=== PATIENT | male | born 1985 | race Caucasian/White ===

== ENCOUNTER 2020-10-02 11:59 | Emergency (ER) | payer SELFPAY ==
--- NOTE | ~2020-10-02 | XR_ITS ---
XR ribs RT 2V w CXR 2V DATE: 10/02/2020 12:14 INDICATION: Fall. Right-sided rib pain. TECHNIQUE: PA and lateral chest. 3 views of the right ribs. COMPARISON: None FINDINGS: There is a minimally displaced fracture of the lateral aspect of the right sixth rib. Normal heart size. No hilar or mediastinal enlargement. The lungs are clear of infiltrate or consolid ation. No pleural effusion or pulmonary vascular congestion or pneumothorax. IMPRESSION: Minimally displaced lateral right sixth rib fracture Reviewed, dictated and finalized at location B.
[2020-10-02 12:05] VITALS: BP 153/94; PULSE 68; RESP 18; TEMP 36.8; O2SAT 98
--- NOTE | 2020-10-02 12:31 | ED.CHESTPAIN ---
HPI - Chest Pain General Chief Complaint: Chest Pain Stated Complaint: broken rib Time Seen by Provider: 10/02/20 12:03 Source: RN notes reviewed History of Present Illness HPI narrative: Patient presents to emergency department from home for right-sided chest pain. Patient states he fell down 2 stairs yesterday and struck the right side of his chest on the railing states has had pain in his right anterior lateral chest since that time pain is worse with deep inspiration and rotation of the torso he denies striking his head or loss conscious he denies any other injury states he is not take anything for the pain Related Data Allergies Allergy/AdvReac Type Severity Reaction Status Date / Time morphine AdvReac Unknown Verified 10/02/20 12:09 Review of Systems Review of Systems: Gen.: Denies fevers or chills Eyes: Denies eye pain or visual change ENT: Denies congestion Respiratory: Denies shortness of breath or cough CV: See HPI GI: Denies abdominal pain nausea, emesis or diarrhea Musculoskeletal: Denies back pain or muscle pain Neuro: Denies numbness, tingling, weakness or focal weakness Skin: Denies rash Except as documented, all other systems reviewed and negative [facility] Past Medical History Medical History (Updated 10/02/20 @ 12:33 by Sal Haile DO) Patient denies significant medical history Social History Social History Smoking status: Current every day smoker Exam Narrative: APPEARANCE: No acute distress, nontoxic, resting in bed EYES: EOMI HEENT: Normocephalic, atraumatic, OMM RESPIRATORY: No respiratory distress Clear to auscultation bilaterally with no rhonchi wheezing or rales. Chest: Tender palpation of the right anterior lateral chest wall and regions of ribs 6 through 8 pain increased with deep inspiration and rotation of the torso CARDIOVASCULAR: Regular rate and rhythm without murmurs rubs or gallops. ABDOMINAL: Soft, nontender, nondistended, no rebound or guarding MUSCULOSKELETAl: Moves all extremities. NEURO: Awake and alert x 4. Following commands, speech normal, no focal deficits SKIN:: Warm, dry. No rashes lesions or abrasions PSYCHIATRIC: Normal affect/mood, Course Course Emergency Course: Discussed with patient results of workup and diagnosis. Discussed need for follow-up with primary care, proper use of medication, and reasons to return to the emergency department. Patient understands and agrees to current treatment plan Vital Signs Vital signs: Vital Signs Temperature 98.2 F 10/02/20 12:05 Pulse Rate 68 10/02/20 12:05 Respiratory Rate 18 10/02/20 12:05 Blood Pressure 153/94 H 10/02/20 12:05 Pulse Oximetry 98 10/02/20 12:05 Temperature 98.2 F 10/02/20 12:05 Pulse Rate 68 10/02/20 12:05 Respiratory Rate 18 10/02/20 12:05 Blood Pressure 153/94 H 10/02/20 12:05 Pulse Oximetry 98 10/02/20 12:05 MDM - Chest Pain Imaging Data Radiologist's impression: ITS Impressions Ribs w/Chest X-Ray 10/02/20 12:21 IMPRESSION: Minimally displaced lateral right sixth rib fracture Discharge Plan Discharge Clinical Impression: Right rib fracture Patient Disposition: Home, Self-Care Condition: Stable Instructions: Antibiotic Form, How to Use an Incentive Spirometer (ED), Rib Fracture (ED) Additional Instructions: Return for increasing chest pain shortness of breath fever or any other symptoms of concern Prescriptions: New hydrocodone-acetaminophen 5-325 mg tablet 1 tablet PO Q4H PRN (Reason: pain) Qty: 20 RF: 0 ibuprofen [IBU] 600 mg tablet 600 mg PO Q6H PRN (Reason: pain) Qty: 20 RF: 0 Follow-up/Referrals: PHYSICIAN,INFORMATION SECURITY ENGINEER [Primary Care Provider] - Dorina Higgins DO [Physician] - (Follow-up in 1-2 days for further on-call physician treatment and evaluation) Stand Alone Forms: Work/School Release IP Time of Disposition: 12:34
[2020-10-02] MEDS: HYDROcodone/acetaminophen (*CRX) 5-325 MG TABLET 1 TAB PO (12:34)
== END 2020-10-02 13:10 | disposition home or self-care (01) ==
PROVIDERS: Emergency Provider Emergency Medicine
DX: S22.31XA Fracture of one rib, right side, initial encounter for closed fracture (principal); W10.9XXA Fall (on) (from) unspecified stairs and steps, initial encounter; F17.200 Nicotine dependence, unspecified, uncomplicated
CPT/HCPCS: 71046; 71100; 99283; A9270

== ENCOUNTER 2021-12-22 12:16 | Emergency (ER) | payer SELFPAY ==
[2021-12-22 12:28] VITALS: BP 153/95; PULSE 106; RESP 16; TEMP 37.6; O2SAT 100
--- NOTE | 2021-12-22 12:37 | ED.URI ---
HPI - URI/Sore Throat General Chief Complaint: Upper Respiratory Infection Stated Complaint: Sore Throat, Fever Time Seen by Provider: 12/22/21 12:30 Source: patient Mode of arrival: ambulatory Limitations: no limitations History of Present Illness HPI Narrative: ELIDIA IS A 36-YEAR-OLD MALE PATIENT PRESENTING TO THE CLINIC TODAY WITH COMPLAINTS OF A SORE THROAT AND FEVER X2 DAYS. HE REPORTS HE DOES NOT KNOW HOW HIGH HIS FEVERS BEEN BUT HE HAS HAD BODY ACHES AND CHILLS WELL. HE DENIES ANY NASAL DRAINAGE. HE REPORTS HE GETS THIS APPROXIMATELY 1 TIME PER YEAR MD elicited complaint: sore throat and nasal congestion Related Data Allergies Allergy/AdvReac Type Severity Reaction Status Date / Time morphine AdvReac Unknown Verified 12/22/21 12:19 Review of Systems Review of Systems: Pertinent positives per HPI. Patient denies any fever, chills, rash, headache, visual changes, dizziness, cough, shortness of breath, chest pain, palpitations, nausea, vomiting, diarrhea, constipation, abdominal pain, or any urinary issues. PMFSH Past Medical History Medical History Patient denies significant medical history Social History Social History Smoking status: Current every day smoker Comments At the time of my signature, I reviewed and agree with the nursing past medical, surgical, social, and family history. There is no relevant family history pertinent to the patient complaint. Exam Narrative: General: Well-developed, well nourished, in no apparent distress Head: Normocephalic, atraumatic Eyes: Pupils equally round and reactive to light bilaterally, EOM intact, sclera and conjunctive clear, no discharge, lids normal Ears: TMs intact and clear, ear canals clear, no drainage, grossly hearing normal. Nose: Nares patent, no discharge, no inflammation, no sinus tenderness. Mouth: Oral pharynx without lesions or masses, good dentition, MMM. tonsillar enlargement, erythematous, with white exudate bilaterally Neck: Supple, trachea midline, enlargement of anterior cervical nodes, no thyroid masses or goiter palpable. Cardio: Regular rate and rhythm, s1 and s2 normal, no murmur appreciated. Resp: Clear to auscultation bilaterally, no rhonchi, rales, wheezing or rubs Course Course Emergency Course: Portions of this record may have been created with voice recognition software. Level of Care: Express Care Visit Vital Signs Vital signs: Vital Signs Temperature 37.6 C 12/22/21 12:28 Pulse Rate 106 H 12/22/21 12:28 Respiratory Rate 16 12/22/21 12:28 Blood Pressure 153/95 H 12/22/21 12:28 Pulse Oximetry 100 12/22/21 12:28 Oxygen Delivery Room Air 12/22/21 12:28 Temperature 37.6 C 12/22/21 12:28 Pulse Rate 106 H 12/22/21 12:28 Respiratory Rate 16 12/22/21 12:28 Blood Pressure 153/95 H 12/22/21 12:28 Pulse Oximetry 100 12/22/21 12:28 Oxygen Delivery Room Air 12/22/21 12:28 Vital signs reviewed MDM - URI/Sore Throat MDM Narrative Medical decision making narrative: at the time of visit patient is resting comfortably on the exam table. Centor criteria 4/4 so I will empirically treat for strep pharyngitis. Supportive measures were discussed with the patient he voiced understanding of discharge instructions and agrees to treatment plan Differential Diagnosis Differential diagnosis: Likely upper respiratory infection, otitis media, sinusitis, viral infection, bronchitis, influenza, pharyngitis and other ( COVID) Discharge Plan Discharge Clinical Impression: Acute bacterial tonsillitis Patient Disposition: Home, Self-Care Condition: Stable Instructions: Antibiotic Form, Tonsillitis (ED) Additional Instructions: TAKE PRESCRIPTION MEDICATIONS ONLY PRESCRIBED- AMOXICILLIN CHANGE TOOTHBRUSH IN 24 HOURS AFTER THE INITIATION OF ANTIBIOTICS ESTIVEN
== END 2021-12-22 12:42 | disposition home or self-care (01) ==
PROVIDERS: Emergency Provider Nurse Practitioner Family
DX: J01.90 Acute sinusitis, unspecified (principal); F17.290 Nicotine dependence, other tobacco product, uncomplicated
CPT/HCPCS: 99213; G0463

== ENCOUNTER 2023-04-18 08:41 | Emergency (ER) | payer OTHER, SELFPAY ==
[2023-04-18 08:55] VITALS: BP 134/96; PULSE 85; RESP 16; TEMP 37; O2SAT 100
--- NOTE | 2023-04-18 09:20 | ED.SKABFB ---
HPI - Skin/Abscess/Foreign Bdy General Chief complaint: Skin/Abscess/Foreign Body Stated complaint: burn right arm Time Seen by Provider: 04/18/23 09:20 Source: patient, RN notes reviewed and old records reviewed Mode of arrival: ambulatory Limitations: no limitations History of Present Illness HPI narrative: 37-year-old male presents to [facility] with complaint of burn to right. Patient reports that he tripped in his kitchen fell onto an open oven door, landing on his right forearm. patient denies major past medical history medications or allergies. Patient's pain is 4/10. Patient has not treated aside basic wound care. Related Data Allergies Allergy/AdvReac Type Severity Reaction Status Date / Time morphine AdvReac Unknown Verified 04/18/23 08:53 Review of Systems Review of Systems: All systems reviewed & are unremarkable except as noted in HPI and below Constitutional: Constitutional: Reports as per HPI and Reports no additional constitutional complaints Eyes: Eyes: Reports no additional eye complaints ENT: Reports system reviewed and no additional complaints, except as documented Cardiovascular: Cardiovascular: Reports no additional cardiovascular complaints, Denies chest pain and Denies dyspnea Respiratory: Respiratory: Reports no additional respiratory complaints, Denies cough and Denies dyspnea Musculoskeletal: Musculoskeletal: Reports no additional musculoskeletal complaints Integumentary/Breasts: Skin/Breast: Reports erythema and Reports wounds (burn ) Neurologic: Reports system reviewed and no additional complaints, except as documented Psychiatric: Psychiatric: Reports no additional psychiatric complaints PMFSH Past Medical History Medical History Patient denies significant medical history Social History Social History Smoking status: Current every day smoker Comments At the time of my signature, I reviewed and agree with the nursing past medical, surgical, social, and family history. There is no relevant family history pertinent to the patient complaint. Exam Const: General: cooperative, healthy appearing, comfortable, no acute distress, alert and well nourished Nutritional Appearance: well nourished Orientation/consciousness: patient oriented x3 Limitations: no limitations HENMT: Head: normal to inspection Ears: external ears normal Face/Nose/Sinus: Normal external nose present, Normal nares present, normal facial exam, No erythema and No edema Face and sinus: normal facial exam, no erythema and no edema Mouth: Yes Normal oral and palatal mucosa present Eyes: General: appearance normal, both eyes and all related structures Neck: Neck: normal visual inspection, full ROM and no meningeal signs Lymphatic: no lymphadenopathy noted and no lymphedema noted Chest: Chest palpation & inspection: normal inspection of the chest Resp: Effort & Inspection: normal respiratory effort and able to speak in complete sentences Auscultation: clear to auscultation bilaterally Cardio: Jugular venous distension: no JVD Rate: regular rate Rhythm: regular rhythm Back/Spine/Pelvis: Cervical Spine: cervical ROM normal Skin: General skin exam: erythema (right forearm) and wounds noted (burn to right forearm) Full body images: 1. 16x6 open, dry, no vesicular areas, no signs of cellulitic changes Neuro: General: patient oriented x3, gait normal, moves all extremities and no meningeal signs Speech: normal speech Gait exam (Neuro): Normal gait present Extrem: General: normal to inspection, full ROM and capillary refill normal Psych: Appearance: grossly normal and well kempt Course Course Emergency Course: Some parts of this dictation were generated by voice recognition software and may contain typographical and/or grammatical inaccuracies. Level of Care: Express Care Vis
== END 2023-04-18 09:46 | disposition home or self-care (01) ==
PROVIDERS: Emergency Provider Nurse Practitioner Family
DX: T22.111A Burn of first degree of right forearm, initial encounter (principal); X19.XXXA Contact with other heat and hot substances, initial encounter; F17.200 Nicotine dependence, unspecified, uncomplicated
CPT/HCPCS: 99213; G0463

== ENCOUNTER 2023-09-26 13:32 | Emergency (ER) | payer OTHER, SELFPAY ==
[2023-09-26 13:40] VITALS: BP 150/129; PULSE 141; RESP 16; TEMP 36.9; O2SAT 97
--- NOTE | 2023-09-26 13:40 | ECG_ITS ---
Test Date: 2023-09-26 13:50:26 Measurements Intervals [place] Rate: 105 P: 48 TN: 132 QRS: 19 QRSD: 88 T: 45 QT: 332 QTc: 440 Interpretive Statements SINUS TACHYCARDIA DELAYED PRECORDIAL R/S TRANSITION CONSIDER INFERIOR INFARCT, AGE INDETERMINATE BASELINE ARTIFACT- V3 ABNORMAL ECG NO PRIOR ECG FOR COMPARISON Electronically Signed On 09-26-2023 15:01:15 CDT by Wilfredo Renae D.O.
--- NOTE | 2023-09-26 13:41 | ED.NAVMDI ---
HPI - Nausea/Vomiting/Diarrhea General Chief complaint: Nausea/Vomiting/Diarrhea Stated complaint: Vomiting/Dehyrdration Time Seen by Provider: 09/26/23 13:41 Source: patient, RN notes reviewed and old records reviewed Mode of arrival: ambulatory Limitations: no limitations History of Present Illness HPI Narrative: Patient presents with complaints of nausea and vomiting for 2 days. He is noted to be tremulous, reports this happens when he gets nervous. He denies any pain. He admits he used to take blood pressure medicine and no longer does so. Poor eye contact noted, minimally cooperative with staff. Reports that he drinks alcohol 3 times weekly, states last use was 3 days ago. MD elicited complaint: nausea, vomiting and diarrhea Description of diarrhea: watery Associated nausea: Yes Associated abdominal pain: No Related Data Home Medications Medication Instructions Recorded Confirmed No Home Medications 09/26/23 09/26/23 Allergies Allergy/AdvReac Type Severity Reaction Status Date / Time morphine AdvReac Unknown Verified 09/26/23 13:33 Review of Systems Review of Systems: All systems reviewed & are unremarkable except as noted in HPI and below Constitutional: Constitutional: Reports no additional constitutional complaints ENT: Reports system reviewed and no additional complaints, except as documented Cardiovascular: Cardiovascular: Reports no additional cardiovascular complaints Respiratory: Respiratory: Reports as per HPI and Reports no additional respiratory complaints Gastrointestinal: Gastrointestinal: Reports as per HPI and Reports no additional gastrointestinal complaints Neurologic: Reports system reviewed and no additional complaints, except as documented and Reports as per HPI Psychiatric: Psychiatric: Reports no additional psychiatric complaints PMFSH Past Medical History Medical History Patient denies significant medical history Social History Social History Smoking status: Current every day smoker Comments At the time of my signature, I reviewed and agree with the nursing past medical, surgical, social, and family history. There is no relevant family history pertinent to the patient complaint. Exam Const: General: no acute distress, alert, awake, diaphoretic and ill appearing Orientation/consciousness: oriented to person, oriented to place and oriented to time HENMT: Head: normal to inspection Resp: Effort & Inspection: normal respiratory effort and able to speak in complete sentences Cardio: Palpation: normal PMI Rate: regular rate Rhythm: regular rhythm Heart sounds: S1 normal heart sound present and S2 normal heart sound present Neuro: General: oriented to person, oriented to place and oriented to time Motor exam (neuro): Tremors during motor activity present bilateral upper extremity Psych: Speech and movement: Pressured speech present and Psychomotor agitation in speech present Affect: Labile affect present Insight: Good insight present (Psych) Judgement: Poor judgement present (Psych) Course Course Level of Care: Express Care Visit Vital Signs Vital signs: Vital Signs Temperature 98.4 F 09/26/23 13:40 Pulse Rate 141 H 09/26/23 13:40 Respiratory Rate 16 09/26/23 13:40 Blood Pressure 150/129 H 09/26/23 13:40 Pulse Oximetry 97 09/26/23 13:40 Oxygen Delivery Room Air 09/26/23 13:40 Temperature 98.4 F 09/26/23 13:40 Pulse Rate 141 H 09/26/23 13:40 Respiratory Rate 16 09/26/23 13:40 Blood Pressure 150/129 H 09/26/23 13:40 Pulse Oximetry 97 09/26/23 13:40 Oxygen Delivery Room Air 09/26/23 13:40 Reviewed MDM - Nausea/Vomiting/Diarrhea MDM Narrative Medical decision making narrative: Patient was urged to go to emergency department. EKG did show sinus tachycardia with a rate of 105, improved from heart r
== END 2023-09-26 13:50 | disposition left against medical advice (07) ==
PROVIDERS: Emergency Provider Nurse Practitioner Family
DX: R00.0 Tachycardia, unspecified (principal); F17.200 Nicotine dependence, unspecified, uncomplicated
CPT/HCPCS: 93005; 99213; G0463

== ENCOUNTER 2024-02-15 09:22 | Inpatient (IN) | payer MEDICAID, SELFPAY ==
[2024-02-15] VITALS (16 sets, daily range): BP systolic 127–152; BP diastolic 63–94; PULSE 9–117; RESP 12–21; TEMP 36.4–36.8; O2SAT 95–100; BMI 26.5
--- NOTE | ~2024-02-15 | XR_ITS ---
XR chest 2V 02/15/2024 10:09 Indication: Chest pain, dizziness and hemoptysis Procedure: 2 view chest Comparison: 10/02/2020 Findings: Heart size normal. No focal air space disease, pulmonary edema, pleural effusion or suspect ed pneumothorax. There are mild superior endplate compression deformities of the midthoracic spine at multiple levels, likely chronic. Impression: 1: No acute cardiopulmonary disease. Reviewed, dictated and finalized at location B. [employer] Impression: 1: No acute cardiopulmonary disease.
--- NOTE | ~2024-02-15 | MR_ITS ---
EXAMINATION: MR MRCP wo/w con/w 3D wo ind DATE: 02/15/2024 16:09 INDICATION: Abnormal liver function tests. TECHNIQUE: Magnetic resonance imaging (MRI) of the abdomen was performed without and with 16 mL Multi Jim intravenous contrast. Sequences included coronal T2-weighted FS FSE, coronal T2-weighted FSE, a xial T1-weighted LAVA, coronal FS FIESTA, axial dual-echo T1-weighted SPGR, coronal lava-FLEX, sagitt al T2-weighted FSE, axial T2-weighted FSE, and axial DWI. Thick-slab T2-weighted FSE images were obta ined for magnetic resonance cholangiopancreatography (MRCP). Maximum intensity projection 3-D reconst ructions of the volumetric data were created by the technologist. Postcontrast sequences included cor onal LAVA-flex and time course of axial T1-weighted LAVA. COMPARISON: Abdomen ultrasound 02/15/24, CT 02/15/2024 FINDINGS: ABDOMEN MRI: There is diffuse hepatic steatosis. The gallbladder is normal in size. Gallbladder wall thickening is noted. The spleen, pancreas, adrenal glands, and kidneys are normal. There are no dilat ed loops of bowel. There is a small volume of ascites. There are no pathologically enlarged lymph nod es. ABDOMEN MRCP: The common duct is mildly dilated to 7 mm. No choledocholithiasis. IMPRESSION: 1. Diffuse hepatic steatosis. 2. Gallbladder wall thickening, which may be seen with chronic liver disease, interstitial edema, or chronic cholecystitis. 3. Mildly dilated common duct. No choledocholithiasis. 4. Small volume of ascites. Reviewed, dictated and finalized at location A. DESIGNER IMPRESSION: 1. Diffuse hepatic steatosis. 2. Gallbladder wall thickening, which may be seen with chronic liver disease, i nterstitial edema, or chronic cholecystitis. 3. Mildly dilated common duct. No choledocholithiasis. 4. Small volume of ascites.
--- NOTE | ~2024-02-15 | CT_ITS ---
EXAMINATION: CTA chest PE abdomen pel DATE: 02/15/2024 10:40 INDICATION: Chest pain, shortness of breath, upper abdominal pain and hematemesis TECHNIQUE: Computed tomography (CT) pulmonary angiogram of the chest was performed with 100 mL Omnipa que-350 intravenous contrast. Additional 3D reconstructions utilizing coronal maximum intensity proje ction (MIP) were performed. CT of the abdomen and pelvis was performed with intravenous contrast util izing the same contrast bolus following a short delay. Automated exposure control and iterative recon struction technique were employed. The dose-length product was 817.70 mGy-cm. COMPARISON: 12/26/2023 FINDINGS: Chest: No pulmonary embolism. With small region of groundglass opacity in the superior segment of the right lower lobe. Mild discoid atelectasis lingula. No pulmonary edema, pleural effusion or pneumothorax. H eart size is normal. No pericardial effusion. Thoracic aorta is normal in caliber with no dissection. No pathologically enlarged thoracic lymphadenopathy. There are several chronic mild superior endplat e compression fractures at T4-T7 with mild anterior wedging at T7 and additional chronic appearing mi ld anterior wedging at T12. Abdomen/pelvis: Diffuse hepatic steatosis with more focal fat along the gallbladder fossa and and the caudate lobe al maria m the margin of the inferior vena cava. The spleen, bilateral adrenal glands and kidneys are normal . The gallbladder measures 4.1 cm in maximal diameter with normal wall thickness of 2.5 mm but with g reater than typical degree of mucosal enhancement. Common bile duct mildly dilated measuring 7 mm. Th ere is subtle peripancreatic stranding with minimal amount of fluid tracking caudally along the right anterior pararenal space which is suspicious for acute interstitial pancreatitis. There is homogeneo us pancreatic parenchymal enhancement with no evident necrosis. No loculated peripancreatic fluid col lections. Bowels including the appendix are normal. Bladder is normal. Small amount of ascites in the pelvis, right upper and right lower quadrants. No abscess or free intraperitoneal gas. Mild lumbar s pondylosis. IMPRESSION: 1. No pulmonary embolus and. 2. Small region of groundglass opacity in the superior segment of the right lower lobe which could re present atelectasis or pneumonia. 3. Acute interstitial pancreatitis. 4. Greater than typical degree of gallbladder mucosal enhancement but without evident wall thickening or pericholecystic inflammatory stranding. Correlate for Watt sign. 5. Mild dilation of the common bile duct to 7 mm without evident distal obstructing stone but would c orrelate with liver function tests and could consider MRCP for further evaluation as clinically indic ated. 6. Very small amount of likely reactive ascites in the pelvis and right abdomen. Reviewed, dictated and finalized at location A. E SETTER IMPRESSION: 1. No pulmonary embolus and. 2. Small region of groundglass opacity in the superior segment of the right low er lobe which could represent atelectasis or pneumonia. 3. Acute interstitial pancreatitis. 4. Greater than typical degree of gallbladder mucosal enhancement but without e vident wall thickening or pericholecystic inflammatory stranding. Correlate for Watt sign. 5. Mild dilation of the common bile duct to 7 mm without evident distal obstruc ting stone but would correlate with liver function tests and could consider MRC P for further evaluation as clinically indicated. 6. Very small amount of likely reactive ascites in the pelvis and right abdomen .
--- NOTE | ~2024-02-15 | US_ITS ---
US abdomen limited INDICATION: Transaminitis. Pancreatitis. PROCEDURE: Realtime right upper abdominal ultrasound. COMPARISON: No prior studies for comparison. FINDINGS: The pancreas is normal without focal mass or pancreatic ductal dilation. Liver is enlarged measuring 21.4 cm with diffuse fatty infiltration. No discrete mass identified. There is normal dir ectional flow in the portal vein. There is gallbladder sludge with gallbladder wall thickening measuring 3.2 mm. Common bile duct mary ures 4 mm. Positive sonographic Watt's sign. IMPRESSION: 1: Hepatomegaly with fatty infiltration of the liver. 2: Gallbladder sludge with gallbladder wall thickening. Consider cholecystitis in the appropriate cl inical setting. Reviewed, dictated and finalized at location B. LE ASSEMBLER IMPRESSION: 1: Hepatomegaly with fatty infiltration of the liver. 2: Gallbladder sludge with gallbladder wall thickening. Consider cholecystitis in the appropriate clinical setting.
--- NOTE | 2024-02-15 09:24 | ECG_ITS ---
Test Date: 2024-02-15 09:31:49 Measurements Intervals [place] Rate: 102 P: 50 NM: 125 QRS: 22 QRSD: 93 T: 45 QT: 338 QTc: 442 Interpretive Statements SINUS TACHYCARDIA NONSPECIFIC ST AND T WAVE ABNORMALITY Compared to ECG 09/26/2023 13:50:26 NO SIGNIFICANT CHANGES Electronically Signed On 02-16-2024 11:50:16 SENIOR SUPPLIER QUALITY ENGINEER by Syd Starks M.D.
--- NOTE | 2024-02-15 09:35 | ED_ITS ---
HPI - Nausea/Vomiting/Diarrhea General Chief complaint: Nausea/Vomiting/Diarrhea <CORETTA Lara Last Filed: 02/15/24 18:46> Stated complaint: vomiting blood <CORETTA Lara Last Filed: 02/15/24 18:46> Time Seen by Provider: 02/15/24 09:25 <CORETTA Lara Last Filed: 02/15/24 18:46> Source: patient <CORETTA Lara Last Filed: 02/15/24 18:46> Mode of arrival: ambulatory <CORETTA Lara Last Filed: 02/15/24 18:46> Limitations: no limitations <CORETTA Lara Last Filed: 02/15/24 18:46> History of Present Illness HPI Narrative: Patient is a 38 y/o male, with PMH of alcohol use disorder, who presents to the ED with c/o hematemesis and chest pain. Patient reports having nausea with vomiting and dry heaving over the last 1 week. He states he has had light pink blood streaking in his emesis. Denies ann hematemesis. Reports having pain throughout his upper abdomen. Has history of pancreatitis and states this feels similar. Is able to keep down some food and drink, but became concerned due to the blood. He is on any anticoagulation. He does have history of alcoholism. Denies history of variceal bleeding. Also reports having pain throughout his left-sided chest over the last 2 days, mild shortness of breath. Denies cough. Denies fevers. Denies diarrhea or constipation. Patient typically during a 6 pack of beer and 6 shots per day. His last drink was last night. He does experience withdrawal symptoms when he feels without drinking. He feels shaky, sweaty, anxious currently. <CED Lara Last Filed: 02/15/24 18:46> Related Data Home medications: Home Medications ?Medication ?Instructions ?Recorded ?Confirmed ?Last Taken ?Type hydroxyzine HCl 10 mg tablet 10 mg PO DAILY 02/15/24 02/15/24 02/15/24 History metoprolol succinate 50 mg 50 mg PO DAILY 02/15/24 02/15/24 02/15/24 History tablet,extended release 24 hr venlafaxine 37.5 mg 37.5 mg PO DAILY 02/15/24 02/15/24 02/15/24 History capsule,extended release 24 hr <Leah Martinez PA-C - Last Filed: 02/15/24 18:46> Allergies/Adverse reactions: Allergies Allergy/AdvReac Type Severity Reaction Status Date / Time morphine AdvReac Unknown Verified 02/15/24 18:38 <Leah Martinez PA-C - Last Filed: 02/15/24 18:46> Review of Systems 2 Review of Systems: All systems reviewed & are unremarkable except as noted in HPI. <Leah Martinez PA-C - Last Filed: 02/15/24 18:46> All systems reviewed & are unremarkable except as noted in HPI and below < Leah Martinez PA-C - Last Filed: 02/15/24 18:46> FOR[facility]LY [facility] Past Medical History Medical History: Medical History Pancreatitis Patient denies significant medical history <Leah Martinez PA-C - Last Filed: 02/15/24 18:46> Social History Social History: Social History Smoking packs per day: 1 Smoking cigarettes per day: 20.0 Years smoked: 23 Smoking pack-years: 23.00 Smoking status: Current every day smoker Tobacco type: cigarettes Alcohol intake: current Drinks per week: 18 Alcohol use details: 6 beer+6 shots per day Substance use: current Substance use type: marijuana Do You Feel Safe in your Home?: Yes Lack of Transportation: YES Lack of Food: Never True Current Housing: I Have Housing Concerned About Future Housing: No Difficulty Paying Gas/Electric Bills: No Difficulty Paying for Meds: No Currently Unemployed: No Education: High School Diploma/GED Difficulty w/ Childcare or Family Care: No Spiritual care concerns: No <Leah Martinez PA-C - Last Filed: 02/15/24 18:46> Exam 2 Narrative: GENERAL: Mildly ill and anxious appearing, well-nourished, in mild acute distress. Actively dry heaving on exam. HEAD: Normocephalic, atraumatic. EYES: Slight scleral icterus. PERRL/EOMI RESPIRATORY: Airway patent, respirations nonlabored. Occasional exp wheezing heard. No other focal lung sounds. CARDIOVASCULAR: Tachycardic with regular rhythm without murmurs, rubs, or gallops. ABDOMINAL: Soft, diffusely tender throughout upper abdomen, no rebound, nondistended. Normoactive BS. MUSCULOSKELETAL: Moves all extremities. No gross deformities. SKIN: Warm, dry, borderline diaphoretic. NEURO: A&O X3. Speech clear. Cranial nerves II-XII grossly intact. Steady gait. Diffusely tremulous in extremities. No focal deficits. PSYCHIATRIC: Anxious, labile mood. <Leah Martinez PA-C - Last Filed: 02/15/24 18:46> Course Course Emergency Course: <Marvin Hamm MD - Last Filed: 02/15/24 18:54> LAUNDRY OPERATOR/PA Physician Supervision This visit was performed by both a physician and an APC. I performed all aspects of the MDM as documented. <Marvin Hamm MD - Last Filed: 02/15/24 18:54> Vital Signs Vital signs: Vital Signs Temperature 97.6 F 02/15/24 09:25 Pulse Rate 116 H 02/15/24 09:25 Respiratory Rate 20 02/15/24 09:25 Blood Pressure 152/94 H 02/15/24 09:25 Pulse Oximetry 97 02/15/24 09:25 Oxygen Delivery Room Air 02/15/24 09:25 Temperature 98.2 F 02/15/24 16:43 Pulse Rate 81 02/15/24 16:43 Respiratory Rate 20 02/15/24 16:43 Blood Pressure 141/70 H 02/15/24 16:43 Pulse Oximetry 97 02/15/24 16:43 Oxygen Delivery Room Air 02/15/24 16:00 <CORETTA Lara Last Filed: 02/15/24 18:46> Vital Signs Temperature 97.6 F 02/15/24 09:25 Pulse Rate 116 H 02/15/24 09:25 Respiratory Rate 20 02/15/24 09:25 Blood Pressure 152/94 H 02/15/24 09:25 Pulse Oximetry 97 02/15/24 09:25 Oxygen Delivery Room Air 02/15/24 09:25 Temperature 98.2 F 02/15/24 16:43 Pulse Rate 81 02/15/24 16:43 Respiratory Rate 20 02/15/24 16:43 Blood Pressure 141/70 H 02/15/24 16:43 Pulse Oximetry 97 02/15/24 16:43 Oxygen Delivery Room Air 02/15/24 16:00 <Marvin Hamm MD - Last Filed: 02/15/24 18:54> MDM - Nausea/Vomiting/Diarrhea MDM Narrative Medical decision making narrative: Patient presented to ED with nausea, vomiting, chest pain, slight hematemesis, abd pain, Hx of alcoholism. Patient tachycardic, diaphoretic, mildly ill upon arrival. Mildly hypertensive, afebrile. Oxygen stable on room air. he does appear to be tremulous, diaphoretic, history of withdrawal symptoms. Last alcoholic drink was last night. CIWA protocol initiated. Initial CIWA score 22. Ativan, thiamine, fluids initiated. CBC with normal white blood cell count, hemoglobin of 11. No records to compare to. Normocytic. Platelets are low at 42. Again no records to compare to. No active bleeding upon my evaluation. Reports only having faint pink streaks of blood in his emesis. Denies ann hematemesis. CMP with sodium of 129, potassium 3.1. IV replacement ordered. Bicarb low at 18. Normal anion gap. Stable kidney function. Calcium low at 7.7. Mag severely deficient at 1.0. 2 g IV replacement given. Total bili elevated to 6.4. Consistent with scleral icterus seen on exam. AST 301. ALT 95. Alk phos 424. Lipase WNL at 293. EKG is without concerning ischemic changes. Troponin is undetectable. Will continue to trend. Initial lactic acid markedly elevated to 6.4. Fluids ongoing. Will continue to trend. Alcohol level 85. CTA chest/abd/pelvis obtained and no evidence of PE, does show possible pneumonia, though patient denies any recent URI symptoms. Low suspicion for PNA. CT consistent with acute interstitial pancreatitis, gallbladder mucosal enhancement, mild biliary duct dilation. No obvious obstructing stone. Consider MRCP. Will obtain right upper quadrant ultrasound to further evaluate. Will discuss with GI. Discussed case with Dr. Garcia, GI, will consult. Advised bilirubin and transaminitis likely related to alcoholic hepatitis, but agreed with MRCP. Discussed case with Dr. Whipple, hospitalist, accepted patient for admission. Patient in agreement with plan and need for admission. Patient given 2 L of fluid in the ED. Will start continues fluids at 150 cc/hour for pancreatitis. Will continue CIWA protocol and precautions. Patient is feeling better after initial Ativan and fluids. <Leah Martinez PA-C - Last Filed: 02/15/24 18:46> Medical Records Attestation: I reviewed the patient's medical records. <Leah Martinez PA-C - Last Filed: 02/15/24 18:46> Lab Data Attestation: I reviewed the patient's lab results. <Leah Martinez PA-C - Last Filed: 02/15/24 18:46> Result diagrams: 02/15/24 18:37 02/15/24 09:39 <Leah Martinez PA-C - Last Filed: 02/15/24 18:46> Labs: Lab Results 02/15/24 02/15/24 02/15/24 Range/Units 09:39 09:40 15:06 WBC 7.3 (4.5-10.0) K/mm3 RBC 3.10 L (4.6-6.20) M/mm3 Hgb 11.0 L (14.0-18.0) g/dL Hct 28.8 L (42.0-52.0) % MCV 92.9 (80-100) fl MCH 35.5 H (26-34) pg MCHC 38.2 H (32-36) g/dl RDW 16.5 H (11.5-14.5) % Plt Count 42 L (150-375) k/mm3 MPV TNP Immature Gran % (Auto) 0.3 (0-0.5) % Neut % (Auto) 66.4 (45.5-73.1) % Lymph % (Auto) 26.8 (18.3-44.2) % [place] % (Auto) 5.5 (2.6-8.5) % Eos % (Auto) 0.3 (0-4.4) % Baso % (Auto) 0.7 (0.2-1.2) % Lymph # (Auto) 1.96 (0.9-3.2) K/mm3 [place] # (Auto) 0.4 (0.1-0.6) K/mm3 Eos # (Auto) 0.0 (0-0.3) K/mm3 Baso # (Auto) 0.1 (0.0-0.1) K/mm3 Abs Immat Gran (auto) 0.02 (0.00-0.031) K/mm3 Absolute Neuts (auto) 4.9 (1.3-6.7) K/mm3 Absolute Nucleated RBC 0.000 (0.0-0.012) K/mm3 Nucleated RBC % 0.0 (0.0-0.2) % Platelet Estimate Decreased (Adequate) % Immature Plt Fraction 37.4 H (0.9-11.2) % Hypochromasia 1+ Target Cells 1+ Tear Drop Cells 1+ Schistocytes None seen PT 13.4 (11.1-14.7) Seconds INR 1.0 APTT 35.9 (22.3-36.8) Seconds Sodium 129 L (137-145) mmol/L Potassium 3.1 L (3.4-5.0) mmol/L Chloride 100 (98-107) mmol/L Carbon Dioxide 18 L (22-30) mmol/L Anion Gap 11 (4-12) mmol/L BUN 9 (9-20) mg/dL Creatinine 0.80 (0.7-1.3) mg/dL Estim Creat Clear Calc 111 ml/min Estimated GFR > 60 (59 - ) Glucose 130 H (65-110) mg/dL Lactic Acid 6.4 H* 1.7 (0.7-2.0) mmol/L Calcium 7.7 L (8.4-10.2) mg/dL Phosphorus 2.6 (2.5-4.5) mg/dL Magnesium 1.0 L (1.6-2.3) mg/dL Total Bilirubin 6.4 H (0.2-1.3) mg/dL AST 301 H (17-59) U/L ALT 95 H (6-50) U/L Alkaline Phosphatase 424 H (38-126) U/L Troponin I < 0.012 0.012 (0.000-0.034) ng/mL Total Protein 7.0 (6.3-8.2) g/dL Albumin 3.0 L (3.5-5.1) g/dL Lipase 293 (23-300) U/L Procalcitonin 0.7 ng/mL Ethyl Alcohol 85 (<10) mg/dL Blood Type A Positive Antibody Screen Negative <Leah Martinez PA-C - Last Filed: 02/15/24 18:46> Lab Results 02/15/24 02/15/24 02/15/24 Range/Units 09:39 09:40 15:06 WBC 7.3 (4.5-10.0) K/mm3 RBC 3.10 L (4.6-6.20) M/mm3 Hgb 11.0 L (14.0-18.0) g/dL Hct 28.8 L (42.0-52.0) % MCV 92.9 (80-100) fl MCH 35.5 H (26-34) pg MCHC 38.2 H (32-36) g/dl RDW 16.5 H (11.5-14.5) % Plt Count 42 L (150-375) k/mm3 MPV TNP Immature Gran % (Auto) 0.3 (0-0.5) % Neut % (Auto) 66.4 (45.5-73.1) % Lymph % (Auto) 26.8 (18.3-44.2) % [place] % (Auto) 5.5 (2.6-8.5) % Eos % (Auto) 0.3 (0-4.4) % Baso % (Auto) 0.7 (0.2-1.2) % Lymph # (Auto) 1.96 (0.9-3.2) K/mm3 [place] # (Auto) 0.4 (0.1-0.6) K/mm3 Eos # (Auto) 0.0 (0-0.3) K/mm3 Baso # (Auto) 0.1 (0.0-0.1) K/mm3 Abs Immat Gran (auto) 0.02 (0.00-0.031) K/mm3 Absolute Neuts (auto) 4.9 (1.3-6.7) K/mm3 Absolute Nucleated RBC 0.000 (0.0-0.012) K/mm3 Nucleated RBC % 0.0 (0.0-0.2) % Platelet Estimate Decreased (Adequate) % Immature Plt Fraction 37.4 H (0.9-11.2) % Hypochromasia 1+ Target Cells 1+ Tear Drop Cells 1+ Schistocytes None seen PT 13.4 (11.1-14.7) Seconds INR 1.0 APTT 35.9 (22.3-36.8) Seconds Sodium 129 L (137-145) mmol/L Potassium 3.1 L (3.4-5.0) mmol/L Chloride 100 (98-107) mmol/L Carbon Dioxide 18 L (22-30) mmol/L Anion Gap 11 (4-12) mmol/L BUN 9 (9-20) mg/dL Creatinine 0.80 (0.7-1.3) mg/dL Estim Creat Clear Calc 111 ml/min Estimated GFR > 60 (59 - ) Glucose 130 H (65-110) mg/dL Lactic Acid 6.4 H* 1.7 (0.7-2.0) mmol/L Calcium 7.7 L (8.4-10.2) mg/dL Phosphorus 2.6 (2.5-4.5) mg/dL Magnesium 1.0 L (1.6-2.3) mg/dL Total Bilirubin 6.4 H (0.2-1.3) mg/dL AST 301 H (17-59) U/L ALT 95 H (6-50) U/L Alkaline Phosphatase 424 H (38-126) U/L Troponin I < 0.012 0.012 (0.000-0.034) ng/mL Total Protein 7.0 (6.3-8.2) g/dL Albumin 3.0 L (3.5-5.1) g/dL Lipase 293 (23-300) U/L Procalcitonin 0.7 ng/mL Ethyl Alcohol 85 (<10) mg/dL Blood Type A Positive Antibody Screen Negative <Marvin Hamm MD - Last Filed: 02/15/24 18:54> Imaging Data Attestation: I personally reviewed and interpreted this imaging study as follows: < Leah N. Gaudreault, PA-C - Last Filed: 02/15/24 18:46> Radiologist's impression: ITS Impressions Chest X-Ray 02/15/24 10:21 Impression: 1: No acute cardiopulmonary disease. Chest/Abdomen/Pelvis CTA 02/15/24 10:58 IMPRESSION: 1. No pulmonary embolus and. 2. Small region of groundglass opacity in the superior segment of the right lower lobe which could represent atelectasis or pneumonia. 3. Acute interstitial pancreatitis. 4. Greater than typical degree of gallbladder mucosal enhancement but without evident wall thickening or pericholecystic inflammatory stranding. Correlate for Watt sign. 5. Mild dilation of the common bile duct to 7 mm without evident distal obstructing stone but would correlate with liver function tests and could consider MRCP for further evaluation as clinically indicated. 6. Very small amount of likely reactive ascites in the pelvis and right abdomen. Abdomen Ultrasound 02/15/24 13:20 IMPRESSION: 1: Hepatomegaly with fatty infiltration of the liver. 2: Gallbladder sludge with gallbladder wall thickening. Consider cholecystitis in the appropriate clinical setting. MRCP 02/15/24 16:11 IMPRESSION: 1. Diffuse hepatic steatosis. 2. Gallbladder wall thickening, which may be seen with chronic liver disease, interstitial edema, or chronic cholecystitis. 3. Mildly dilated common duct. No choledocholithiasis. 4. Small volume of ascites. <CORETTA Lara Last Filed: 02/15/24 18:46> ECG Data EKG #1: Attestation: I personally reviewed and interpreted this ECG as follows: <Leah Maritnez PA-C - Last Filed: 02/15/24 18:46> ECG completion date: 02/15/24 <CORETTA Lara Last Filed: 02/15/24 18:46> ECG completion time: 09:31 <CORETTA Lara Last Filed: 02/15/24 18:46> EKG Interpretation: tachycardia (102), sinus rhythm and no ST changes <CORETTA Lara Last Filed: 02/15/24 18:46> Discharge Plan Discharge Clinical Impression: Hypomagnesemia, Hyperbilirubinemia, Transaminitis, Hyponatremia, Hypokalemia, Thrombocytopenia Alcohol withdrawal Qualifiers: Complication of substance-induced condition: with unspecified complication Q ualified Code(s): F10.939 - Alcohol use, unspecified with withdrawal, unspecified Pancreatitis Qualifiers: Chronicity: acute Pancreatitis type: alcohol induced Acute pancreatitis complication: no infection or necrosis Qualified Code(s): K85.20 - Alcohol induced acute pancreatitis without necrosis or infection <Leah Martinez PA-C - Last Filed: 02/15/24 18:46> Patient Disposition: Still a Patient <Leah Martinez PA-C - Last Filed: 02/15/24 18:46> Condition: Serious <Leah Martinez PA-C - Last Filed: 02/15/24 18:46>
[2024-02-15 09:48] LABS: Basophils Absolute Auto 0.1 K/mm3 (0.0-0.1); Basophils Percent Auto 0.7 % (0.2-1.2); Eosinophils Percent Auto 0.3 % (0-4.4); Hematocrit 28.8 % (42.0-52.0); Immature Granulocyte Absolute 0.02 K/mm3 (0.00-0.031); Immature Granulocyte Percent A 0.3 % (0-0.5); Immature Platelet Fraction Pct 37.4 % (0.9-11.2); Lymphocytes Absolute Auto 1.96 K/mm3 (0.9-3.2); Lymphocytes Percent Auto 26.8 % (18.3-44.2); Mean Corpuscular Hemoglobin 35.5 pg (26-34); Mean Corpuscular Volume 92.9 fl (80-100); Monocytes Absolute Auto 0.4 K/mm3 (0.1-0.6); Monocytes Percent Auto 5.5 % (2.6-8.5); Neutrophils Absolute Auto 4.9 K/mm3 (1.3-6.7); Neutrophils Percent Auto 66.4 % (45.5-73.1); Platelet Count Result 42 k/mm3 (150-375); Red Cell Distribution Width 16.5 % (11.5-14.5); White Blood Count 7.3 K/mm3 (4.5-10.0)
[2024-02-15 09:57] LABS: Phosphorus 2.6 mg/dL (2.5-4.5)
[2024-02-15 09:57] LABS: Prothrombin Time 13.4 Seconds (11.1-14.7)
[2024-02-15 09:58] LABS: Alanine Aminotransferase 95 U/L (6-50); Alkaline Phosphatase 424 U/L (38-126); Anion Gap 11 mmol/L (4-12); Aspartate Amino Transferase 301 U/L (17-59); Bilirubin,Total 6.4 mg/dL (0.2-1.3); Blood Urea Nitrogen 9 mg/dL (9-20); Calcium 7.7 mg/dL (8.4-10.2); Carbon Dioxide 18 mmol/L (22-30); Chloride 100 mmol/L (98-107); Estimated CRCL calculation 111 ml/min; Estimated Glomerular Filt Rate > 60; Glucose 130 mg/dL (65-110); Lipase 293 U/L (23-300); Partial Thromboplastin Time 35.9 Seconds (22.3-36.8); Potassium 3.1 mmol/L (3.4-5.0); Sodium 129 mmol/L (137-145)
[2024-02-15 09:59] LABS: Ethanol 85 mg/dL (<10)
[2024-02-15 10:01] LABS: Lactic Acid Reflex 6.4 mmol/L (0.7-2.0)
[2024-02-15 10:06] LABS: Mean Corpuscular HGB Conc 38.2 g/dl (32-36)
[2024-02-15 10:08] LABS: Hypochromasia 1+; Platelet Estimate Decreased (Adequate); Schistocytes None Seen; Target Cells 1+; Tear Drop Cells 1+
[2024-02-15 10:10] LABS: Troponin I < 0.012 ng/mL (0.000-0.034)
[2024-02-15] MEDS: PANTOPRAZOLE SODIUM IV 40 MG VIAL IV PUSH ×2 (10:11→20:22)
[2024-02-15] MEDS: ONDANSETRON INJ 4 MG/2 ML VIAL IV PUSH ×2 (10:15→17:03)
[2024-02-15] MEDS: LORazepam INJ (*CRX) 2 MG/ML VIAL IV PUSH ×2 (10:17→17:01)
[2024-02-15] MEDS: THIAMINE HCL 200 MG/2 ML VIAL 100 MG IV PUSH (10:20)
[2024-02-15] MEDS: SODIUM CHLORIDE 0.9% IV 1,000 ML 999 ML IV CONT ×2 (10:21→10:47)
[2024-02-15] MEDS: MAGNESIUM SULF 2 GM/WATER 50ML 2 GM/50 ML BAG IVPB ×2 (10:47→22:20)
[2024-02-15] MEDS: POTASSIUM CHLORIDE INJ 40 MEQ in SODIUM CHLORIDE 0.9% IV 500 ML 130 MEQ IVPB (10:47)
[2024-02-15 12:44] LABS: Reflex Lactic Acid Yes or No Add Lactic
--- NOTE | 2024-02-15 13:27 | PM.IMHP ---
H&P: HPI History of Present Illness Date/Time: 02/15/24 13:27 Chief Complaint: Abdominal pain, hematemesis (blood streaked), etoh abuse Narrative: Albert Fuller is a 38 year old male with PHM of htn, anxiety, and etoh abuse who presents with vomiting x one week. He reports a history of pancreatitis x two separate occasions in the past. He drinks 12 drinks daily without fail. He has not had seizures in the past with any withdrawal from etoh. He does report a history of childhood epilepsy but denies seizures in decades. Presenting complaint today, he notes some blood tinged vomit, although no gross hematemesis. He has had little to no intake over the last few days, although feels that he has an appetite. This morning he describes having onset of severe abdominal pain - in the upper abdomen, luq/ruq, without any timing or radiation. There are not any prandial symptoms or history of similar. He denies chest pain, cough, fevers, or recent sick contacts. He does endorse some looser stools over the last week. On evaluation in the ED a CXR was nonacute. A CTA chest/abd/pelvis shows no PE, a small opacity in the RLL, interstitial pancreatitis, and mild dilation of the CBD to 7mm without evident obstruction. An u/s of the RUQ shows FLD and gb sludge with wall thickening - poss. cholecystitis. Labwork reveals K of 3.1, mag of 1.0 - both of which are currently being repleted. ETOH level was elevated at 85. Lactate is 6.4. Bilirubin is 6.4, ast/alt 301/95 respectively. GI was consulted with plan for MRCP now in place. Patient was given 2mg of lorazepam IV for anxiety/withdrawal symptoms with ciwa score of 22. Albert will be admitted inpatient with further imaging planned, GI consultation. Review of Systems Review of Systems: CONSTITUTIONAL: ?No weight loss, fever, chills, weakness, or fatigue. HEENT: ? No visual loss, blurred vision, or double vision.? No sinus pain or drainage, no recent sore throat or dysphagia. SKIN: ?No rash or pruritis. CARDIOVASCULAR: ?No chest pain, chest pressure or chest discomfort. No palpitations.? No PND or orthopnea. RESPIRATORY: ?No shortness of breath, cough or sputum. GASTROINTESTINAL: ?See hpi. GENITOURINARY: ?No dysuria. NEUROLOGICAL: ?No syncope. No change in bowel or bladder control. HEMATOLOGIC: ?No history of anemia; no prolonged bleeding or excessive bruising. ENDOCRINOLOGIC: ?No reports of sweating, cold or heat intolerance. No tremor. [facility] Past Medical History Medical History Pancreatitis Patient denies significant medical history Social History Social History Smoking status: Current every day smoker Alcohol intake: current Alcohol use details: 6 beer+6 shots per day Meds Home Medications and Allergies Home Medications ?Medication ?Instructions ?Recorded ?Confirmed ?Type No Home Medications 09/26/23 09/26/23 History Allergies Allergy/AdvReac Type Severity Reaction Status Date / Time morphine AdvReac Unknown Verified 09/26/23 13:33 Vital Signs Vital Signs - 24 hr 02/15/24 09:25 02/15/24 09:30 02/15/24 09:31 Temperature 97.6 F Pulse Rate 116 H 108 H 104 H Respiratory Rate 20 14 12 Blood Pressure 152/94 H 152/94 H Pulse Oximetry 97 98 98 Oxygen Delivery Room Air 02/15/24 09:56 02/15/24 10:00 02/15/24 10:01 Temperature Pulse Rate 117 H 92 81 Respiratory Rate 21 H 14 13 Blood Pressure 150/92 H Pulse Oximetry 98 98 Oxygen Delivery 02/15/24 10:20 02/15/24 11:01 Temperature Pulse Rate 84 104 H Respiratory Rate 13 19 Blood Pressure 148/92 H Pulse Oximetry 98 100 Oxygen Delivery Exam Narrative: GENERAL APPEARANCE: Appears to be in no acute distress. Appears uncomfortable. HEAD: normocephalic atraumatic EYES: PERRL, EOMI. Vision grossly intact. ENT: Hearing grossly intact, no nasal discharge NECK: Neck supple, trachea midline. CARDIAC: Normal S1/S2. Rhythm is regular. No murmurs, rubs, or gallops. No cyanosis or pallor. Extremities are warm and well perfused. LUNGS: Clear to auscultation without rales, rhonchi, wheezing or diminished breath sounds. Respirations even and unlabored. ABDOMEN: BS positive x 4 quadrants.Soft, ruq/luq tenderness. Epigastric tenderness. MSK: No joint tenderness/swelling, fair strength in all extremities. PERIPHERAL VASCULAR: Peripheral pulses palpable. Normal perfusion, cap refill <2 seconds. No edema. NEURO: Follows commands. No focal deficits. + tremor with hands extended. SKIN: [place] without lesions or eruptions. PSYCH: Stable, no paranoia or delusional thinking. H&P: Results Labs Labs: Short CBC 02/15/24 Range/Units 09:40 WBC 7.3 (4.5-10.0) K/mm3 Hgb 11.0 L (14.0-18.0) g/dL Hct 28.8 L (42.0-52.0) % Plt Count 42 L (150-375) k/mm3 BMP 02/15/24 09:39 Sodium 129 L Potassium 3.1 L Chloride 100 Carbon Dioxide 18 L BUN 9 Creatinine 0.80 Glucose 130 H Calcium 7.7 L Cardiac Enzymes 02/15/24 Range/Units 09:39 Troponin I < 0.012 (0.000-0.034) ng/mL Liver Function 02/15/24 Range/Units 09:39 Total Bilirubin 6.4 H (0.2-1.3) mg/dL AST 301 H (17-59) U/L ALT 95 H (6-50) U/L Alkaline Phosphatase 424 H (38-126) U/L Albumin 3.0 L (3.5-5.1) g/dL Assessment and Plan Assessment and plan (1) Pancreatitis: Code(s): K85.90 - Acute pancreatitis without necrosis or infection, unspecified Status: Acute Assessment and Plan: 02/14 - Abd. pain today, vomiting x one week. Question of cholecystitis on RUQ u/s. - GI consulted and plan for MRCP in place. (2) Hypokalemia: Code(s): E87.6 - Hypokalemia Status: Acute Assessment and Plan: - 40meq KCL rider ordered and infusing. Repeat labs. (3) Hyponatremia: Code(s): E87.1 - Hypo-osmolality and hyponatremia Status: Acute Assessment and Plan: Likely secondary to lack of solute - beer potomania. - IVF, trend labs. (4) Hyperbilirubinemia: Code(s): E80.6 - Other disorders of bilirubin metabolism Status: Acute Assessment and Plan: Context of n/v and abd. pain. RUQ pain, MRCP pending. Question cholecystitis. GI consulted. - Repeat lactate, add procal. Normal WBC. (5) Hypomagnesemia: Code(s): E83.42 - Hypomagnesemia Status: Acute Assessment and Plan: Mag 1.0 - 2gm ordered, Will repeat and replete as needed. (6) Alcohol withdrawal: Code(s): F10.939 - Alcohol use, unspecified with withdrawal, unspecified Status: Acute Assessment and Plan: 12 drinks daily - many years, no hx seizures. - Ciwa monitoring with lorazepam prn. (7) Abdominal pain: Code(s): R10.9 - Unspecified abdominal pain Status: Acute (8) Hematemesis: Code(s): K92.0 - Hematemesis Status: Acute Assessment and Plan: States blood tinged with no large amounts of bleeding, no hx similar. Hgb 11 without recent history of baseline. - Repeat CBC/trend, GI is consulted. Plan Albert Fuller is a 38 year old male with hx etoh abuse with one week of vomiting, one day of abdominal pain with imaging findings of acute pancreatitis and questionable cholecystitis. Patient is being admitted for further evaluation/monitoring with consult to GI and MRCP pending. Quality VTE Prophylaxis VTE prophylaxis: mechanical ordered Hospitalist MIPS Advance Care Plan I have confirmed that the patient's Advanced Care Plan is present, code status is documented, or surrogate decision maker is listed in patient medical record.: Yes
[2024-02-15 15:24] LABS: Lactic Acid 1.7 mmol/L (0.7-2.0)
[2024-02-15 15:37] LABS: Troponin I 0.012 ng/mL (0.000-0.034)
[2024-02-15 15:55] LABS: Procalcitonin 0.7 ng/mL
[2024-02-15] MEDS: fentaNYL CITRATE INJ (*CRX) 100 MCG/2 ML VIAL 50 MCG IV PUSH ×2 (17:01→20:22)
[2024-02-15] MEDS: SODIUM CHLORIDE 0.9% IV 1,000 ML 150 ML IV CONT (17:02)
--- NOTE | 2024-02-15 18:21 | ADMGEN ---
This patient, Albert Fuller Jr., was admitted to IMU Room 206-02 at 02/15/24 at 1410. Patient/family oriented to hospital policies and general routines including ID bracelet, bed and alarms, visiting hours, pain management, procedures, bathroom and other care routines, personal items, smoking policy, room service/diet, and visiting hours. Information on how to activate the Rapid Response Team has been discussed. Patient/Family are encouraged to report perceived risks to care and to ask questions if they do not understand what they are told or what they should do.
[2024-02-15 18:27] LABS: Glucose Point of Care 91 mg/dl (65-105)
[2024-02-15 18:45] LABS: Hematocrit 26.2 % (42.0-52.0); Hemoglobin 9.7 g/dL (14.0-18.0)
[2024-02-15 18:57] LABS: Magnesium 1.5 mg/dL (1.6-2.3)
[2024-02-15 19:11] LABS: Troponin I < 0.012 ng/mL (0.000-0.034)
[2024-02-16] VITALS (18 sets, daily range): BP systolic 114–143; BP diastolic 69–97; PULSE 71–97; RESP 18–22; TEMP 36.5–36.9; O2SAT 95–100
[2024-02-16] MEDS: fentaNYL CITRATE INJ (*CRX) 100 MCG/2 ML VIAL 50 MCG IV PUSH ×4 (02:05→16:49)
[2024-02-16] MEDS: SODIUM CHLORIDE 0.9% IV 1,000 ML 150 ML IV CONT (03:02)
[2024-02-16 05:32] LABS: Basophils Percent Auto 0.7 % (0.2-1.2); Eosinophils Absolute Auto 0.1 K/mm3 (0-0.3); Eosinophils Percent Auto 1.7 % (0-4.4); Hematocrit 24.4 % (42.0-52.0); Hemoglobin 8.7 g/dL (14.0-18.0); Immature Granulocyte Absolute 0.02 K/mm3 (0.00-0.031); Immature Granulocyte Percent A 0.5 % (0-0.5); Immature Platelet Fraction Pct 36.9 % (0.9-11.2); Lymphocytes Absolute Auto 1.27 K/mm3 (0.9-3.2); Mean Corpuscular HGB Conc 35.7 g/dl (32-36); Mean Corpuscular Volume 95.3 fl (80-100); Monocytes Absolute Auto 0.2 K/mm3 (0.1-0.6); Monocytes Percent Auto 4.9 % (2.6-8.5); Neutrophils Absolute Auto 2.5 K/mm3 (1.3-6.7); Neutrophils Percent Auto 61.2 % (45.5-73.1); Platelet Count Result 31 k/mm3 (150-375); Red Blood Count 2.56 M/mm3 (4.6-6.20); Red Cell Distribution Width 17.2 % (11.5-14.5); White Blood Count 4.1 K/mm3 (4.5-10.0)
[2024-02-16 05:53] LABS: Glucose Point of Care 97 mg/dl (65-105)
[2024-02-16 06:46] LABS: Alanine Aminotransferase 80 U/L (6-50); Albumin Level 2.4 g/dL (3.5-5.1); Alkaline Phosphatase 305 U/L (38-126); Anion Gap 0 mmol/L (4-12); Aspartate Amino Transferase 231 U/L (17-59); Bilirubin,Total 7.5 mg/dL (0.2-1.3); Blood Urea Nitrogen 4 mg/dL (9-20); Calcium 7.5 mg/dL (8.4-10.2); Carbon Dioxide 27 mmol/L (22-30); Chloride 103 mmol/L (98-107); Estimated CRCL calculation 111 ml/min; Estimated Glomerular Filt Rate > 60; Glucose 91 mg/dL (65-110); Magnesium 1.8 mg/dL (1.6-2.3); Potassium 3.7 mmol/L (3.4-5.0); Sodium 130 mmol/L (137-145)
[2024-02-16 06:51] LABS: Anisocytosis 1+; Platelet Estimate Decreased (Adequate); Schistocytes None Seen; Stomatocytes 1+; Target Cells 2+; Tear Drop Cells 1+
--- NOTE | 2024-02-16 07:45 | WPDGICN ---
Assessment and Plan Assessment and plan (1) Pancreatitis: Qualifiers: Acute pancreatitis complication: no infection or necrosis Pancreatitis type: other <Nury Zepeda CLINCHING MACHINE OPERATOR - Last Filed: 02/16/24 09:08> Code(s): K85.90 - Acute pancreatitis without necrosis or infection, unspecified <Nury Zepeda CLINCHING MACHINE OPERATOR - Last Filed: 02/16/24 09:08> Status: Acute <Nury Zepeda CLINCHING MACHINE OPERATOR - Last Filed: 02/16/24 09:08> (2) Upper abdominal pain: Code(s): R10.10 - Upper abdominal pain, unspecified <Nury Zepeda CLINCHING MACHINE OPERATOR - Last Filed: 02/16/24 09:08> Status: Acute <Nury Zepeda CLINCHING MACHINE OPERATOR - Last Filed: 02/16/24 09:08> (3) Nausea and vomiting: Qualifiers: Vomiting type: hematemesis Qualified Code(s): K92.0 - Hematemesis <Nury Zepeda CLINCHING MACHINE OPERATOR - Last Filed: 02/16/24 09:08> Code(s): R11.2 - Nausea with vomiting, unspecified <Nury Zepeda CLINCHING MACHINE OPERATOR - Last Filed: 02/16/24 09:08> Status: Acute <Nury Zepeda CLINCHING MACHINE OPERATOR - Last Filed: 02/16/24 09:08> (4) Hematemesis: Qualifiers: Nausea presence: with nausea Qualified Code(s): K92.0 - Hematemesis <Nury Zepeda CLINCHING MACHINE OPERATOR - Last Filed: 02/16/24 09:08> Code(s): K92.0 - Hematemesis <Nury Proctor. Duane CLINCHING MACHINE OPERATOR - Last Filed: 02/16/24 09:08> Status: Acute <Nury Zepeda CLINCHING MACHINE OPERATOR - Last Filed: 02/16/24 09:08> (5) Pancytopenia: Code(s): D61.818 - Other pancytopenia <Nury Streetyadirakvng CLINCHING MACHINE OPERATOR - Last Filed: 02/16/24 09:08> Status: Acute <Nury ZepedaJCN - Last Filed: 02/16/24 09:08> (6) ETOH abuse: Code(s): F10.10 - Alcohol abuse, uncomplicated <Nury ZepedaSAM - Last Filed: 02/16/24 09:08> Status: Acute <Nury Zepeda CLINCHING MACHINE OPERATOR - Last Filed: 02/16/24 09:08> Assessment and Plan: 1. Pancreatitis: Initial CT a showed acute interstitial pancreatitis. Follow-up imaging including abdominal ultrasound and MRCP showed normal appearing pancreas. Lipase 293. Patient has a history of pancreatitis in the past. Given Hx of heavy alcohol use possible chronic pancreatitis cannot be excluded but there are no findings on ultrasound or MRCP to support chronic pancreatitis at this time Primary care team to continue monitoring 2. BUQ abdominal pain/nausea/vomiting/hematemesis: Patient complains of sharp bilateral upper quadrant abdominal pain, nausea, vomiting, and hematemesis that has been occurring x7 days. Patient states that the blood noted in emesis was a small amount. He denies any nausea , vomiting or hematemesis since admission. Patient's abdominal pain has improved but not resolved. patient states that he uses Aleve as needed a few times weekly. Patient drinks and minimum of 12 alcoholic beverages daily , smokes 1 pack per day and uses marijuana daily. imaging since admission showed gallbladder wall thickening and mildly dilated common bile duct at 7 mm. Given history cannot exclude varices but no active GI bleeding at this time. Patient is not on no anticoagulation. INR 1.0, HGB 12, HCT 24, platelets 31. DDX: Joanna-Crowder tear versus peptic ulcer disease versus varices versus AVM versus esophagitis. EGD today continue PPI keep patient NPO care with NSAIDs, aspirin, or anticoagulation further recs to follow endoscopy 3. Elevated LFT's/alcoholic hepatitis/ETOH abuse: MELD 3.0-> 20, FIB-4->32.49. Liver transaminase and alk-phos still elevated but trending down since admission. AST 301-->231, ALT 95-->80, ALK-PHOS 424-->305. Total bilirubin 6.4-->7.5. Albumin 2.4, INR 1.0 and platelets 31. Mild common bile duct dilation noted on imaging of 7 mm but no obvious obstruction. Patient with known ETOH abuse so this is likely secondary to alcoholic hepatitis. Alcohol cessation strongly recommended Continue to trend LFT's Check hepatitis panel continue [facility] protocol 4. Pancytopenia: Labs trending down since admission showing WBC 7-->4, Hgb 11-->9. Hct 29-->29 and platelets 42-->31. Patient admits to a small amount of hematemesis prior to admission but denies any other signs of active GI bleeding to include hematochezia or melena. May be secondary to problem #2. Primary care team to continue monitoring and transfuse as needed to keep HGB > 7 Thank you very much for allowing me to share in the care of this very nice patient. This report may have been done utilizing a voice recognition system. Attempts have been made to correct errors. However, there may be uncorrected grammatical, spelling, and recognition errors present. <Nury Zepeda APRN - Last Filed: 02/16/24 09:08> GI Consult Note Consult date/time: 02/16/24 07:45 <Nury Zepeda APRN - Last Filed: 02/16/24 09:08> Reason for consult: Pancreatitis, elevated LFT's, hematemesis <Nury Zepeda APRN - Last Filed: 02/16/24 09:08> I have reviewed our nurse practitioner's note, examined the patient and pertinent laboratory data. We have discussed the plan extensively and agreed with was stated in the note. In addition, I have written a separate note after the EGD, which did not show any source of bleeding, therefore PPIs are no longer indicated. Of note, patient's MELD 3.0 score is 20, and consideration might be given to starting prednisone for alcohol related hepatitis. Pt has no contraindications such as kidney failure, GI bleeding or infection. Lille score can be measured at days 4 and 7 to decide usefullness or futility of continuing for 4 weeks. <Poncho Perez MD - Last Filed: 02/16/24 14:47> HPI: This is a 38-year-old male with history of prior pancreatitis, HTN, ETOH abuse, anxiety, and childhood epilepsy. He presents to the emergency room yesterday with complaints of vomiting x1 week. GI has been consulted for pancreatitis, elevated LFTs, and hematemesis. Patient complains of bilateral upper quadrant abdominal pain that he describes as a sharp constant pain that has been occurring for 1 week. Prior to admission he was also experiencing nausea and vomiting with occasional blood noted in emesis x7 days that he denies any nausea or vomiting since admission. He states that he is having regular daily bowel movements that are formed and not urgent. Denies bloating, odynophagia, dysphagia, reflux, regurgitation, early satiety, appetite or weight loss. Denies any diarrhea, constipation, hematochezia, or melena. Patient uses Aleve as needed few times weekly. He drinks a a minimum of 12 alcoholic beverages daily, smokes 1 pack a cigarettes per day and uses marijuana daily. Family history negative for CRC or IBD. ENDOSCOPY HISTORY: EGD: Patient has never had an EGD COLONOSCOPY: Patient has never had a colonoscopy LABS AND STOOL STUDIES: Labs 02/16/2024: Sodium 130, potassium 3.7, BUN 4, creatinine 0.80, GFR > 60. WBC is 4, HGB 9, HCT 24, MCV 95, platelets 31, INR 1.0. Total bilirubin 7.5, AST 231, ALT 80, alkaline phosphatase 305, albumin 2.4, lipase 293. Calcium 7.5, magnesium 1.8, procalcitonin 0.7, ETOH 85 Labs 02/15/2024: Sodium 129, WBCs 7, HGB 11, HCT 24, platelets 42. Total bilirubin 6.4, AST 301, ALT 95, alkaline phosphatase 424. IMAGING: MRCP: 02/15/2024 IMPRESSION: 1. Diffuse hepatic steatosis. 2. Gallbladder wall thickening, which may be seen with chronic liver disease, interstitial edema, or chronic cholecystitis. 3. Mildly dilated common duct (7mm). No choledocholithiasis. 4. Small volume of ascites. Abdominal Ultrasound 02/15/2024 IMPRESSION: 1: Hepatomegaly with fatty infiltration of the liver. 2: Gallbladder sludge with gallbladder wall thickening. Consider cholecystitis in the appropriate clinical setting. CTA chest/abd/pelvis w/contrast 02/15/2024 IMPRESSION: 1. No pulmonary embolus and. 2. Small region of groundglass opacity in the superior segment of the right lower lobe which could represent atelectasis or pneumonia. 3. Acute interstitial pancreatitis. 4. Greater than typical degree of gallbladder mucosal enhancement but without evident wall thickening or pericholecystic inflammatory stranding. Correlate for Watt sign. 5. Mild dilation of the common bile duct to 7 mm without evident distal obstructing stone but would correlate with liver function tests and could consider MRCP for further evaluation as clinically indicated. 6. Very small amount of likely reactive ascites in the pelvis and right abdomen. <Nury Zepeda APRN - Last Filed: 02/16/24 09:08> Review of Systems Constitutional: Constitutional: Reports as per HPI <Nury Zepeda APRN - Last Filed: 02/16/24 09:08> ENT: Reports as per HPI <Nury Zepead APRN - Last Filed: 02/16/24 09:08> Cardiovascular: Cardiovascular: Reports as per HPI, Denies chest pain and Denies dyspnea <Nury Zepeda APRN - Last Filed: 02/16/24 09:08> Respiratory: Respiratory: Denies cough, Denies hemoptysis and Denies dyspnea <Nury Zepeda APRN - Last Filed: 02/16/24 09:08> Gastrointestinal: Gastrointestinal: Reports as per HPI, Reports nausea, Reports vomiting and Reports hematemesis <Nury Zepeda APRN - Last Filed: 02/16/24 09:08> Musculoskeletal: Musculoskeletal: Reports as per HPI <Nury Zepeda APRN - Last Filed: 02/16/24 09:08> Integumentary/Breasts: Skin/Breast: Reports as per HPI <Nury Zepeda APRN - Last Filed: 02/16/24 09:08> Psychiatric: Psychiatric: Reports as per HPI <Nury Zepeda APRN - Last Filed: 02/16/24 09:08> Endocrine: Endocrine: Reports no additional endocrine complaints <Nury Zepeda APRN - Last Filed: 02/16/24 09:08> Hematologic/Lymphatic: Hematologic/Lymphatic: Reports no additional hematologic/lymphatic complaints <Nury Zepeda APRN - Last Filed: 02/16/24 09:08> [facility] Past Medical History Medical History: Medical History (Updated 02/16/24 @ 09:05 by Nury Zepeda APRN) Seizure Alcohol withdrawal Thrombocytopenia Hyponatremia Pancreatitis Patient denies significant medical history <Nury Zepeda APRN - Last Filed: 02/16/24 09:08> Social History Social History: Social History Smoking packs per day: 1 Smoking cigarettes per day: 20.0 Years smoked: 23 Smoking pack-years: 23.00 Smoking status: Current every day smoker Tobacco type: cigarettes Alcohol intake: current Drinks per week: 18 Alcohol use details: 6 beer+6 shots per day Substance use: current Substance use type: marijuana Do You Feel Safe in your Home?: Yes Lack of Transportation: YES Lack of Food: Never True Current Housing: I Have Housing Concerned About Future Housing: No Difficulty Paying Gas/Electric Bills: No Difficulty Paying for Meds: No Currently Unemployed: No Education: High School Diploma/GED Difficulty w/ Childcare or Family Care: No Spiritual care concerns: No <Nury Zepeda APRN - Last Filed: 02/16/24 09:08> Meds Home Medications and Allergies Home medications: Home Medications ?Medication ?Instructions ?Recorded ?Confirmed ?Type hydroxyzine HCl 10 mg tablet 10 mg PO DAILY 02/15/24 02/15/24 History metoprolol succinate 50 mg 50 mg PO DAILY 02/15/24 02/15/24 History tablet,extended release 24 hr venlafaxine 37.5 mg 37.5 mg PO DAILY 02/15/24 02/15/24 History capsule,extended release 24 hr <Nury Zepeda APRN - Last Filed: 02/16/24 09:08> Allergies/Adverse reactions: Allergies Allergy/AdvReac Type Severity Reaction Status Date / Time morphine AdvReac Unknown Verified 02/15/24 18:38 <Nury Zepeda APRN - Last Filed: 02/16/24 09:08> Vital Signs Vital Signs - 24 hr 02/15/24 09:25 02/15/24 09:30 02/15/24 09:31 Temperature 97.6 F Pulse Rate 116 H 108 H 104 H Respiratory Rate 20 14 12 Blood Pressure 152/94 H 152/94 H Pulse Oximetry 97 98 98 Oxygen Delivery Room Air 02/15/24 09:56 02/15/24 10:00 02/15/24 10:01 Temperature Pulse Rate 117 H 92 81 Respiratory Rate 21 H 14 13 Blood Pressure 150/92 H Pulse Oximetry 98 98 Oxygen Delivery 02/15/24 10:20 02/15/24 11:01 02/15/24 14:10 Temperature 98.3 F Pulse Rate 84 104 H 87 Respiratory Rate 13 19 20 Blood Pressure 148/92 H 131/81 Pulse Oximetry 98 100 97 Oxygen Delivery 02/15/24 14:10 02/15/24 14:25 02/15/24 16:00 Temperature Pulse Rate 86 Respiratory Rate Blood Pressure Pulse Oximetry Oxygen Delivery Room Air Room Air 02/15/24 16:20 02/15/24 16:43 02/15/24 18:00 Temperature 98.2 F Pulse Rate 94 81 81 Respiratory Rate 20 Blood Pressure 141/70 H Pulse Oximetry 97 Oxygen Delivery 02/15/24 20:00 02/15/24 20:00 02/15/24 20:40 Temperature 98.2 F Pulse Rate 93 90 Respiratory Rate 20 Blood Pressure 127/63 Pulse Oximetry 95 Oxygen Delivery Room Air 02/15/24 21:25 02/15/24 23:17 02/16/24 00:00 Temperature Pulse Rate 9 L 72 Respiratory Rate Blood Pressure Pulse Oximetry Oxygen Delivery Room Air 02/16/24 00:03 02/16/24 04:00 02/16/24 04:00 Temperature 97.8 F Pulse Rate 92 74 Respiratory Rate 20 Blood Pressure 142/97 H Pulse Oximetry 100 Oxygen Delivery Room Air 02/16/24 04:35 Temperature 97.7 F Pulse Rate 95 Respiratory Rate 20 Blood Pressure 143/85 H Pulse Oximetry 96 Oxygen Delivery <Nury Zepeda APRN - Last Filed: 02/16/24 09:08> Exam Const: General: cooperative, healthy appearing, comfortable, no acute distress and well developed <Nury Zepeda APRN - Last Filed: 02/16/24 09:08> Orientation/consciousness: oriented to person, oriented to place, oriented to time and patient oriented x3 <Nury Zepeda APRN Last Filed: 02/16/24 09:08> HENMT: Head: normal to inspection, normocephalic and atraumatic <Nurychris Zepeda APRN Last Filed: 02/16/24 09:08> Mouth: Yes Normal oral and palatal mucosa present and Yes moist mucous membranes <[facility] Last Filed: 02/16/24 09:08> Eyes: General: appearance normal, both eyes and all related structures <[facility]chris [facility] Last Filed: 02/16/24 09:08> Conjunctivae: conjunctivae normal <[facility]chris [facility]epeda [facility] Last Filed: 02/16/24 09:08> Sclera: scleral abnormality (scleral icterus) bilateral <Nury Zepeda APRN Last Filed: 02/16/24 09:08> Pupils: Equal, round and reactive pupils present <[facility]chris [facility] Last Filed: 02/16/24 09:08> Neck: Neck: normal visual inspection <Nury Zepead APRN Last Filed: 02/16/24 09:08> Chest: Chest palpation & inspection: normal inspection of the chest <Nurychris Zepeda APRN Last Filed: 02/16/24 09:08> Resp: Effort & Inspection: normal respiratory effort and able to speak in complete sentences <[facility]chris [facility] Last Filed: 02/16/24 09:08> Auscultation: clear to auscultation bilaterally <[facility]chris [facility] Last Filed: 02/16/24 09:08> Cardio: Jugular venous distension: no JVD <Nury Zepeda APRN Last Filed: 02/16/24 09:08> Rate: regular rate <[facility] eZpeda [facility] Last Filed: 02/16/24 09:08> Rhythm: regular rhythm <[facility] Last Filed: 02/16/24 09:08> Heart sounds: S1 normal heart sound present and S2 normal heart sound present <Nury Zepeda APRN Last Filed: 02/16/24 09:08> GI: Inspection: normal to inspection <Nury Zepeda CLINCHING MACHINE OPERATOR - Last Filed: 02/16/24 09:08> GI Palp: Yes Soft to palpation, No Tenderness to palpation present (GI), No Guarding due to palpation present (GI) and Yes No hepatosplenomegaly present <Nury Streetyadirakvng CLINCHING MACHINE OPERATOR - Last Filed: 02/16/24 09:08> Auscultation: normal bowel sounds <Nury Streetyadirakvng CLINCHING MACHINE OPERATOR - Last Filed: 02/16/24 09:08> Rectal Exam: deferred <Nury Streetmilady CLINCHING MACHINE OPERATOR - Last Filed: 02/16/24 09:08> Skin: General skin exam: No normal color (jaundice) and no rashes or lesions noted <Nury Streetyadirakvng CLINCHING MACHINE OPERATOR - Last Filed: 02/16/24 09:08> Neuro: General: oriented to person, oriented to place, oriented to time and patient oriented x3 <Nury Zepeda CLINCHING MACHINE OPERATOR - Last Filed: 02/16/24 09:08> Cranial nerves: Yes Equal, round and reactive pupils present <Nury Streetmilady CLINCHING MACHINE OPERATOR - Last Filed: 02/16/24 09:08> Speech: normal speech <Nury Streetyadirakvng CLINCHING MACHINE OPERATOR - Last Filed: 02/16/24 09:08> Extrem: General: normal to inspection and no clubbing, cyanosis or edema <Nury Streetmilady CLINCHING MACHINE OPERATOR - Last Filed: 02/16/24 09:08> Psych: Appearance: grossly normal and well kempt <Nury Streetmilady CLINCHING MACHINE OPERATOR - Last Filed: 02/16/24 09:08> Affect: normal affect <Nury Streetmilady CLINCHING MACHINE OPERATOR - Last Filed: 02/16/24 09:08> Results Labs CBC & Chem 7: 02/16/24 04:54 02/16/24 04:54 <Nury StreetJC henningN - Last Filed: 02/16/24 09:08> Labs: Short CBC 02/15/24 02/15/24 02/16/24 Range/Units 09:40 18:37 04:54 WBC 7.3 4.1 L (4.5-10.0) K/mm3 Hgb 11.0 L 9.7 L 8.7 L (14.0-18.0) g/dL Hct 28.8 L 26.2 L 24.4 L (42.0-52.0) % Plt Count 42 L 31 L (150-375) k/mm3 BMP 02/15/24 02/16/24 09:39 04:54 Sodium 129 L 130 L Potassium 3.1 L 3.7 Chloride 100 103 Carbon Dioxide 18 L 27 BUN 9 4 L D Creatinine 0.80 0.80 Glucose 130 H 91 Calcium 7.7 L 7.5 L Cardiac Enzymes 02/15/24 02/15/24 02/15/24 Range/Units 09:39 15:06 18:37 Troponin I < 0.012 0.012 < 0.012 (0.000-0.034) ng/mL Liver Function 02/15/24 02/16/24 Range/Units 09:39 04:54 Total Bilirubin 6.4 H 7.5 H (0.2-1.3) mg/dL AST 301 H 231 H (17-59) U/L ALT 95 H 80 H (6-50) U/L Alkaline Phosphatase 424 H 305 H (38-126) U/L Albumin 3.0 L 2.4 L (3.5-5.1) g/dL <Nury Zepeda, CLINCHING MACHINE OPERATOR - Last Filed: 02/16/24 09:08>
--- NOTE | 2024-02-16 08:52 | WPDANESEPPF ---
Anes - Initial Pre Proc Eval Procedure: Operation Date: 02/16/24 16:30 Proposed Procedures p Esophagogastroduodenoscopy - Juan Carlos Diallo MD Date/Time: 02/16/24 08:52 Surgeon: Hesham Whipple MD Pre Op Diagnosis: ETOH WD/Pancreatitis/Hyperbili/Hypok/mag/Lactic Ac Patient Data Age: 38 Gender: M Height: 1.78 m Weight: 83.5 kg Last Vital Signs Temp 36.7 C 02/16/24 07:54 Pulse 90 02/16/24 07:54 Resp 20 02/16/24 07:54 BP 126/88 02/16/24 07:54 Pulse Ox 96 02/16/24 07:54 O2 Del Method Room Air 02/16/24 04:00 Allergies Allergy/AdvReac Type Severity Reaction Status Date / Time morphine AdvReac Unknown Verified 02/15/24 18:38 Home Medications ?Medication ?Instructions ?Recorded ?Confirmed ?Type hydroxyzine HCl 10 mg tablet 10 mg PO DAILY 02/15/24 02/15/24 History metoprolol succinate 50 mg 50 mg PO DAILY 02/15/24 02/15/24 History tablet,extended release 24 hr venlafaxine 37.5 mg 37.5 mg PO DAILY 02/15/24 02/15/24 History capsule,extended release 24 hr Laboratory Tests 02/15/24 02/15/24 02/15/24 09:39 09:40 15:06 WBC 7.3 K/mm3 (4.5-10.0) RBC 3.10 L M/mm3 (4.6-6.20) Hgb 11.0 L g/dL (14.0-18.0) Hct 28.8 L % (42.0-52.0) MCV 92.9 fl (80-100) MCH 35.5 H pg (26-34) MCHC 38.2 H g/dl (32-36) RDW 16.5 H % (11.5-14.5) Plt Count 42 L k/mm3 (150-375) MPV TNP Immature Gran % (Auto) 0.3 % (0-0.5) Neut % (Auto) 66.4 % (45.5-73.1) Lymph % (Auto) 26.8 % (18.3-44.2) [place] % (Auto) 5.5 % (2.6-8.5) Eos % (Auto) 0.3 % (0-4.4) Baso % (Auto) 0.7 % (0.2-1.2) Lymph # (Auto) 1.96 K/mm3 (0.9-3.2) [place] # (Auto) 0.4 K/mm3 (0.1-0.6) Eos # (Auto) 0.0 K/mm3 (0-0.3) Baso # (Auto) 0.1 K/mm3 (0.0-0.1) Abs Immat Gran (auto) 0.02 K/mm3 (0.00-0.031) Absolute Neuts (auto) 4.9 K/mm3 (1.3-6.7) Absolute Nucleated RBC 0.000 K/mm3 (0.0-0.012) Nucleated RBC % 0.0 % (0.0-0.2) Platelet Estimate Decreased (Adequate) % Immature Plt Fraction 37.4 H % (0.9-11.2) Hypochromasia 1+ Anisocytosis Target Cells 1+ Tear Drop Cells 1+ Stomatocytes Schistocytes None seen PT 13.4 Seconds (11.1-14.7) INR 1.0 APTT 35.9 Seconds (22.3-36.8) Sodium 129 L mmol/L (137-145) Potassium 3.1 L mmol/L (3.4-5.0) Chloride 100 mmol/L (98-107) Carbon Dioxide 18 L mmol/L (22-30) Anion Gap 11 mmol/L (4-12) BUN 9 mg/dL (9-20) Creatinine 0.80 mg/dL (0.7-1.3) Estim Creat Clear Calc 111 ml/min Estimated GFR > 60 (59 - ) Glucose 130 H mg/dL (65-110) POC Capillary Glucose Lactic Acid 6.4 H* mmol/L 1.7 mmol/L (0.7-2.0) (0.7-2.0) Calcium 7.7 L mg/dL (8.4-10.2) Phosphorus 2.6 mg/dL (2.5-4.5) Magnesium 1.0 L mg/dL (1.6-2.3) Total Bilirubin 6.4 H mg/dL (0.2-1.3) AST 301 H U/L (17-59) ALT 95 H U/L (6-50) Alkaline Phosphatase 424 H U/L (38-126) Troponin I < 0.012 ng/mL 0.012 ng/mL (0.000-0.034) (0.000-0.034) Total Protein 7.0 g/dL (6.3-8.2) Albumin 3.0 L g/dL (3.5-5.1) Lipase 293 U/L (23-300) Procalcitonin 0.7 ng/mL Ethyl Alcohol 85 mg/dL (<10) Blood Type A Positive Antibody Screen Negative 02/15/24 02/15/24 02/15/24 18:24 18:37 20:06 WBC RBC Hgb 9.7 L g/dL (14.0-18.0) Hct 26.2 L % (42.0-52.0) MCV MCH MCHC RDW Plt Count MPV Immature Gran % (Auto) Neut % (Auto) Lymph % (Auto) [place] % (Auto) Eos % (Auto) Baso % (Auto) Lymph # (Auto) [place] # (Auto) Eos # (Auto) Baso # (Auto) Abs Immat Gran (auto) Absolute Neuts (auto) Absolute Nucleated RBC Nucleated RBC % Platelet Estimate % Immature Plt Fraction Hypochromasia Anisocytosis Target Cells Tear Drop Cells Stomatocytes Schistocytes PT INR APTT Sodium Potassium Chloride Carbon Dioxide Anion Gap BUN Creatinine Estim Creat Clear Calc Estimated GFR Glucose POC Capillary Glucose 91 mg/dl 97 mg/dl (65-105) (65-105) Lactic Acid 1.0 mmol/L (0.7-2.0) Calcium Phosphorus Magnesium 1.5 L mg/dL (1.6-2.3) Total Bilirubin AST ALT Alkaline Phosphatase Troponin I < 0.012 ng/mL (0.000-0.034) Total Protein Albumin Lipase Procalcitonin Ethyl Alcohol Blood Type Antibody Screen 02/16/24 04:54 WBC 4.1 L K/mm3 (4.5-10.0) RBC 2.56 L M/mm3 (4.6-6.20) Hgb 8.7 L g/dL (14.0-18.0) Hct 24.4 L % (42.0-52.0) MCV 95.3 fl (80-100) MCH 34.0 pg (26-34) MCHC 35.7 g/dl (32-36) RDW 17.2 H % (11.5-14.5) Plt Count 31 L k/mm3 (150-375) MPV TNP Immature Gran % (Auto) 0.5 % (0-0.5) Neut % (Auto) 61.2 % (45.5-73.1) Lymph % (Auto) 31.0 % (18.3-44.2) [place] % (Auto) 4.9 % (2.6-8.5) Eos % (Auto) 1.7 % (0-4.4) Baso % (Auto) 0.7 % (0.2-1.2) Lymph # (Auto) 1.27 K/mm3 (0.9-3.2) [place] # (Auto) 0.2 K/mm3 (0.1-0.6) Eos # (Auto) 0.1 K/mm3 (0-0.3) Baso # (Auto) 0.0 K/mm3 (0.0-0.1) Abs Immat Gran (auto) 0.02 K/mm3 (0.00-0.031) Absolute Neuts (auto) 2.5 K/mm3 (1.3-6.7) Absolute Nucleated RBC 0.000 K/mm3 (0.0-0.012) Nucleated RBC % 0.0 % (0.0-0.2) Platelet Estimate Decreased (Adequate) % Immature Plt Fraction 36.9 H % (0.9-11.2) Hypochromasia Anisocytosis 1+ Target Cells 2+ Tear Drop Cells 1+ Stomatocytes 1+ Schistocytes None seen PT INR APTT Sodium 130 L mmol/L (137-145) Potassium 3.7 mmol/L (3.4-5.0) Chloride 103 mmol/L (98-107) Carbon Dioxide 27 mmol/L (22-30) Anion Gap 0 L mmol/L (4-12) BUN 4 L D mg/dL (9-20) Creatinine 0.80 mg/dL (0.7-1.3) Estim Creat Clear Calc 111 ml/min Estimated GFR > 60 (59 - ) Glucose 91 mg/dL (65-110) POC Capillary Glucose Lactic Acid Calcium 7.5 L mg/dL (8.4-10.2) Phosphorus Magnesium 1.8 mg/dL (1.6-2.3) Total Bilirubin 7.5 H mg/dL (0.2-1.3) AST 231 H U/L (17-59) ALT 80 H U/L (6-50) Alkaline Phosphatase 305 H U/L (38-126) Troponin I Total Protein 6.0 L g/dL (6.3-8.2) Albumin 2.4 L g/dL (3.5-5.1) Lipase Procalcitonin Ethyl Alcohol Blood Type Antibody Screen Patient hx anesthesia problems: none Family hx anesthesia problems: none Results Review: All pre-operative results and documents have been reviewed as part of the pre-operative evaluation. [facility] Past Medical History Medical History (Updated 02/16/24 @ 09:05 by Nury Zepeda APRN) Seizure Alcohol withdrawal Thrombocytopenia Hyponatremia Pancreatitis Patient denies significant medical history Social History Social History Smoking packs per day: 1 Smoking cigarettes per day: 20.0 Years smoked: 23 Smoking pack-years: 23.00 Smoking status: Current every day smoker Tobacco type: cigarettes Alcohol intake: current Drinks per week: 18 Alcohol use details: 6 beer+6 shots per day Substance use: current Substance use type: marijuana Do You Feel Safe in your Home?: Yes Lack of Transportation: YES Lack of Food: Never True Current Housing: I Have Housing Concerned About Future Housing: No Difficulty Paying Gas/Electric Bills: No Difficulty Paying for Meds: No Currently Unemployed: No Education: High School Diploma/GED Difficulty w/ Childcare or Family Care: No Spiritual care concerns: No Anes - Eval Final PreProcedure Day of Procedure 02/16/24 08:52 Patient weight: overweight Heart: regular rate and rhythm Lungs: clear to auscultation Airway: Mallampati scale class II Neurological: alert and oriented Last oral intake: >/= 8 hours ASA classification: IV Emergent: no Anesthetic plan: proceed Anesthesia type and monitoring: general GIVS and standard monitoring Results Review: All pre-operative results and documents have been reviewed as part of the pre-operative evaluation. Informed Consent: The patient's anesthetic plan and its attendant risks and benefits were discussed with the patient/family/POA. Questions were solicited and answers provided to the satisfaction of the patient/family/POA.
[2024-02-16] MEDS: MIDAZOLAM HCL (*CRX) 2 MG/2 ML VIAL IV PUSH (08:58)
[2024-02-16] MEDS: LACTATED RINGERS 1,000 ML 150 ML IV CONT (08:58)
[2024-02-16] MEDS: SIMETHICONE ORAL SUSPENSION 20 MG/0.3 ML 30 ML BOTTLE 0.6 ML PO (09:13)
--- NOTE | 2024-02-16 09:22 | WPDGIPROGNO ---
Progress Note: A&P Assessment and Plan (1) Hematemesis: Qualifiers: Nausea presence: with nausea Qualified Code(s): K92.0 - Hematemesis Code(s): K92.0 - Hematemesis Status: Acute Assessment and Plan: See EGD report. There is no evidence of acute bleeding or even gastric erosions. There is, however, early signs of portal hypertension, with mosaic pattern in the mucosa. There is no evidence of gastroesophageal varices. IV PPI should be discontinued, since these can predispose patient to hospital-acquired infections. His calculated MELD 3.0 score is 20, therefore initiation of corticosteroid should be discussed with the patient and hospital team. If the decision is made, prednisone 40 mg can be started and continued for a month and subsequently tapered. A Lille score can be calculated at days 4 and 7 to decide upon continuation of steroids for 4 weeks or discontinuation if the score is > 0.45. Subjective Date/time seen: 02/16/24 09:22 Interval history: Patient states he had coffee-ground and ann hematemesis up until 2 days ago. There is no history of melena. He is here for EGD. Objective Data Vital Signs Vital Signs: Vital Signs - 24 hr 02/15/24 09:25 02/15/24 09:30 02/15/24 09:31 Temperature 97.6 F Pulse Rate 116 H 108 H 104 H Respiratory Rate 20 14 12 Blood Pressure 152/94 H 152/94 H Pulse Oximetry 97 98 98 Oxygen Delivery Room Air 02/15/24 09:56 02/15/24 10:00 02/15/24 10:01 Temperature Pulse Rate 117 H 92 81 Respiratory Rate 21 H 14 13 Blood Pressure 150/92 H Pulse Oximetry 98 98 Oxygen Delivery 02/15/24 10:20 02/15/24 11:01 02/15/24 14:10 Temperature 98.3 F Pulse Rate 84 104 H 87 Respiratory Rate 13 19 20 Blood Pressure 148/92 H 131/81 Pulse Oximetry 98 100 97 Oxygen Delivery 02/15/24 14:10 02/15/24 14:25 02/15/24 16:00 Temperature Pulse Rate 86 Respiratory Rate Blood Pressure Pulse Oximetry Oxygen Delivery Room Air Room Air 02/15/24 16:20 02/15/24 16:43 02/15/24 18:00 Temperature 98.2 F Pulse Rate 94 81 81 Respiratory Rate 20 Blood Pressure 141/70 H Pulse Oximetry 97 Oxygen Delivery 02/15/24 20:00 02/15/24 20:00 02/15/24 20:40 Temperature 98.2 F Pulse Rate 93 90 Respiratory Rate 20 Blood Pressure 127/63 Pulse Oximetry 95 Oxygen Delivery Room Air 02/15/24 21:25 02/15/24 23:17 02/16/24 00:00 Temperature Pulse Rate 9 L 72 Respiratory Rate Blood Pressure Pulse Oximetry Oxygen Delivery Room Air 02/16/24 00:03 02/16/24 04:00 02/16/24 04:00 Temperature 97.8 F Pulse Rate 92 74 Respiratory Rate 20 Blood Pressure 142/97 H Pulse Oximetry 100 Oxygen Delivery Room Air 02/16/24 04:35 02/16/24 07:54 02/16/24 09:00 Temperature 97.7 F 98.0 F 98.3 F Pulse Rate 95 90 82 Respiratory Rate 20 20 18 Blood Pressure 143/85 H 126/88 137/82 Pulse Oximetry 96 96 96 Oxygen Delivery Room Air Intake/Output Intake/Output: Intake & Output 02/13/24 02/14/24 02/15/24 02/16/24 23:59 23:59 23:59 23:59 Intake Total 1170 50 Output Total 500 Balance 1170 -450 Meds/Results Medications: Active Medications Generic Name Dose Route Start Last Admin Trade Name Freq PRN Reason Stop Dose Admin Acetaminophen 650 mg 02/15/24 12:28 Acetaminophen 650 Mg Suppository RECTAL Q6H PRN Mild Pain (1-3) or Fever Chlordiazepoxide HCl 25 mg 02/16/24 08:46 Chlordiazepoxide (*Crx) 25 Mg Capsule PO Q6H PRN Withdrawal Dextrose 12.5 gm 02/15/24 12:28 Dextrose 50% 25 Gm/50 Ml Syringe IV PUSH PRN PRN Hypoglycemia Protocol Fentanyl Citrate 50 mcg 02/15/24 12:28 02/16/24 02:05 Fentanyl Citrate Inj (*Crx) 100 Mcg/2 Ml Vial IV PUSH 50 mcg Q2H PRN Administration Pain Rated 7-10 Folic Acid 1 mg 02/16/24 09:00 Folic Acid 1 Mg/0.2 Ml Inj IV PUSH QAM NAIL Glucagon 1 mg 02/15/24 12:28 Glucagon For Inj 1 Mg Vial IM PRN PRN Hypoglycemia Protocol Glucose 15 gm 02/15/24 12:28 Glucose Oral Gel 15 Gm Of Glucse In 37.5 Gm Tube PO PRN PRN Hypoglycemia Protocol Sodium Chloride 1,000 mls @ 150 mls/hr 02/15/24 12:15 02/16/24 03:02 Normal Saline Iv IV CONT 150 mls/hr .Q6H40M ANIL Administration Dextrose 1,000 mls @ 100 mls/hr 02/15/24 12:28 Dextrose 5% 1,000 Ml IVPB PRN PRN Hypoglycemia Protocol Lactated Ringer's 1,000 mls @ 150 mls/hr 02/16/24 08:55 02/16/24 08:58 Lr - Lactated Ringers Iv IV CONT 150 mls/hr .Q6H40M ANIL Administration Lorazepam 2 mg 02/15/24 09:43 02/15/24 17:01 Lorazepam Inj (*Crx) 2 Mg/Ml Vial IV PUSH 2 mg Q2H PRN Administration CIWA > 15 Metoprolol Succinate 50 mg 02/16/24 09:00 Metoprolol Succinate Ext Rel 50 Mg Tabcr PO QAM ANIL Ondansetron HCl 4 mg 02/15/24 12:28 02/15/24 17:03 Ondansetron Inj 4 Mg/2 Ml Vial IV PUSH 4 mg Q4H PRN Administration Nausea Pantoprazole Sodium 40 mg 02/15/24 21:00 02/15/24 20:22 Pantoprazole Sodium Iv 40 Mg Vial IV PUSH 40 mg Q12HR ANIL Administration Simethicone 0.6 ml 02/16/24 09:13 02/16/24 09:13 Simethicone Oral Suspension 20 Mg/0.3 Ml 30 Ml Bottle PO 0.6 ml ONCE PRN Administration Gas Discomfort Thiamine HCl 100 mg 02/16/24 09:00 Thiamine Hcl 200 Mg/2 Ml Vial IV PUSH DAILY [facility] Radiology Results: ITS Impressions Chest X-Ray 02/15/24 10:21 Impression: 1: No acute cardiopulmonary disease. Chest/Abdomen/Pelvis CTA 02/15/24 10:58 IMPRESSION: 1. No pulmonary embolus and. 2. Small region of groundglass opacity in the superior segment of the right lower lobe which could represent atelectasis or pneumonia. 3. Acute interstitial pancreatitis. 4. Greater than typical degree of gallbladder mucosal enhancement but without evident wall thickening or pericholecystic inflammatory stranding. Correlate for Watt sign. 5. Mild dilation of the common bile duct to 7 mm without evident distal obstructing stone but would correlate with liver function tests and could consider MRCP for further evaluation as clinically indicated. 6. Very small amount of likely reactive ascites in the pelvis and right abdomen. Abdomen Ultrasound 02/15/24 13:20 IMPRESSION: 1: Hepatomegaly with fatty infiltration of the liver. 2: Gallbladder sludge with gallbladder wall thickening. Consider cholecystitis in the appropriate clinical setting. MRCP 02/15/24 16:11 IMPRESSION: 1. Diffuse hepatic steatosis. 2. Gallbladder wall thickening, which may be seen with chronic liver disease, interstitial edema, or chronic cholecystitis. 3. Mildly dilated common duct. No choledocholithiasis. 4. Small volume of ascites. Labs Labs: Laboratory Results - last 24 hr 02/15/24 02/15/24 02/15/24 09:39 09:40 15:06 WBC 7.3 RBC 3.10 L Hgb 11.0 L Hct 28.8 L MCV 92.9 MCH 35.5 H MCHC 38.2 H RDW 16.5 H Plt Count 42 L MPV TNP Immature Gran % (Auto) 0.3 Neut % (Auto) 66.4 Lymph % (Auto) 26.8 [place] % (Auto) 5.5 Eos % (Auto) 0.3 Baso % (Auto) 0.7 Lymph # (Auto) 1.96 [place] # (Auto) 0.4 Eos # (Auto) 0.0 Baso # (Auto) 0.1 Abs Immat Gran (auto) 0.02 Absolute Neuts (auto) 4.9 Absolute Nucleated RBC 0.000 Nucleated RBC % 0.0 Platelet Estimate Decreased % Immature Plt Fraction 37.4 H Hypochromasia 1+ Anisocytosis Target Cells 1+ Tear Drop Cells 1+ Stomatocytes Schistocytes None seen PT 13.4 INR 1.0 APTT 35.9 Sodium 129 L Potassium 3.1 L Chloride 100 Carbon Dioxide 18 L Anion Gap 11 BUN 9 Creatinine 0.80 Estim Creat Clear Calc 111 Estimated GFR > 60 Glucose 130 H POC Capillary Glucose Lactic Acid 6.4 H* 1.7 Calcium 7.7 L Phosphorus 2.6 Magnesium 1.0 L Total Bilirubin 6.4 H AST 301 H ALT 95 H Alkaline Phosphatase 424 H Troponin I < 0.012 0.012 Total Protein 7.0 Albumin 3.0 L Lipase 293 Procalcitonin 0.7 Ethyl Alcohol 85 Blood Type A Positive Antibody Screen Negative 02/15/24 02/15/24 02/15/24 18:24 18:37 20:06 WBC RBC Hgb 9.7 L Hct 26.2 L MCV MCH MCHC RDW Plt Count MPV Immature Gran % (Auto) Neut % (Auto) Lymph % (Auto) [place] % (Auto) Eos % (Auto) Baso % (Auto) Lymph # (Auto) [place] # (Auto) Eos # (Auto) Baso # (Auto) Abs Immat Gran (auto) Absolute Neuts (auto) Absolute Nucleated RBC Nucleated RBC % Platelet Estimate % Immature Plt Fraction Hypochromasia Anisocytosis Target Cells Tear Drop Cells Stomatocytes Schistocytes PT INR APTT Sodium Potassium Chloride Carbon Dioxide Anion Gap BUN Creatinine Estim Creat Clear Calc Estimated GFR Glucose POC Capillary Glucose 91 97 Lactic Acid 1.0 Calcium Phosphorus Magnesium 1.5 L Total Bilirubin AST ALT Alkaline Phosphatase Troponin I < 0.012 Total Protein Albumin Lipase Procalcitonin Ethyl Alcohol Blood Type Antibody Screen 02/16/24 04:54 WBC 4.1 L RBC 2.56 L Hgb 8.7 L Hct 24.4 L MCV 95.3 MCH 34.0 MCHC 35.7 RDW 17.2 H Plt Count 31 L MPV TNP Immature Gran % (Auto) 0.5 Neut % (Auto) 61.2 Lymph % (Auto) 31.0 [place] % (Auto) 4.9 Eos % (Auto) 1.7 Baso % (Auto) 0.7 Lymph # (Auto) 1.27 [place] # (Auto) 0.2 Eos # (Auto) 0.1 Baso # (Auto) 0.0 Abs Immat Gran (auto) 0.02 Absolute Neuts (auto) 2.5 Absolute Nucleated RBC 0.000 Nucleated RBC % 0.0 Platelet Estimate Decreased % Immature Plt Fraction 36.9 H Hypochromasia Anisocytosis 1+ Target Cells 2+ Tear Drop Cells 1+ Stomatocytes 1+ Schistocytes None seen PT INR APTT Sodium 130 L Potassium 3.7 Chloride 103 Carbon Dioxide 27 Anion Gap 0 L BUN 4 L D Creatinine 0.80 Estim Creat Clear Calc 111 Estimated GFR > 60 Glucose 91 POC Capillary Glucose Lactic Acid Calcium 7.5 L Phosphorus Magnesium 1.8 Total Bilirubin 7.5 H AST 231 H ALT 80 H Alkaline Phosphatase 305 H Troponin I Total Protein 6.0 L Albumin 2.4 L Lipase Procalcitonin Ethyl Alcohol Blood Type Antibody Screen
[2024-02-16 10:30] LABS: Bilirubin Indirect 1.7 mg/dL (0-1.1)
[2024-02-16] MEDS: chlordiazePOXIDE (*CRX) 25 MG CAPSULE PO ×2 (11:03→16:49)
[2024-02-16] MEDS: FOLIC ACID 1 MG/0.2 ML INJ IV PUSH (11:05)
[2024-02-16] MEDS: THIAMINE HCL 200 MG/2 ML VIAL 100 MG IV PUSH (11:07)
[2024-02-16] MEDS: METOPROLOL SUCCINATE EXT REL 50 MG TABCR PO (11:08)
[2024-02-16 11:19] LABS: Hepatitis B Surface Antigen Negative (Negative)
[2024-02-16 11:24] LABS: HAV RESULT Negative (Negative); Hepatitis B Core IgM Result Negative (Negative)
[2024-02-16 11:36] LABS: Hepatitis C Virus Antibody Negative (Negative)
[2024-02-16 11:49] LABS: Lipase 279 U/L (23-300)
[2024-02-16 12:18] LABS: Glucose Point of Care 108 mg/dl (65-105)
--- NOTE | 2024-02-16 16:49 | PM.IMPN ---
Progress Note: A&P Assessment and Plan (1) Pancreatitis: Qualifiers: Acute pancreatitis complication: no infection or necrosis Chronicity: acute Pancreatitis type: alcohol induced Qualified Code(s): K85.20 - Alcohol induced acute pancreatitis without necrosis or infection Code(s): K85.90 - Acute pancreatitis without necrosis or infection, unspecified Status: Acute Assessment and Plan: Patient presents with abdominal pain, nausea and vomiting with streaks of blood. Lipase normal and remained normal on repeat. CT Abd/Pelvis showing acute interstitial pancreatitis. Greater than typical degree of GB mucosal enhancement but without evident wall thickening or pericholecystic inflammatory stranding and mild dilation of the CBD to 7 mm without evident distal obstructing stone RUQ US showing hepatomegaly with fatty liver and GB sludge with GB wall thickening. MRCP showing diffuse hepatic steatosis, GB wall thickening and mildly dilated CBD without choledocholithiasis and small vol of ascites Suspect pancreatitis related to alcoholism. Thickened GB probably from his chronic liver disease. GI consulted. Diet started. Follow (2) Hematemesis: Qualifiers: Nausea presence: with nausea Qualified Code(s): K92.0 - Hematemesis Code(s): K92.0 - Hematemesis Status: Acute Assessment and Plan: Patient with blood tinged hematemesis with no large amounts of bleeding. Hgb did drop from 11 -> 9.7 -> 8.7 GI consulted and EGD performed showing normal esophagus and duodenum were normal. There was diffuse chronic superficial gastritis in the fundus, bodt and antrum. The gastritis had a mild HTN change. Regular diet ordered. Recommended stopping all PPIs Appreciate GI input. Stop PPI. Diet continued but will change to low fat diet. Monitor HH. (3) Alcohol withdrawal: Qualifiers: Complication of substance-induced condition: with unspecified complication Qualified Code(s): F10.939 - Alcohol use, unspecified with withdrawal, unspecified Code(s): F10.939 - Alcohol use, unspecified with withdrawal, unspecified Status: Acute Assessment and Plan: Patient has hx of about 12 drinks daily going on for many years. No hx of seizures. CIWA protocol started . Ativan and Librium available for elevated CIWA protocol. Thiamine and Folate started. He was educated about the benefits of abstaining from alcohol use. (4) Electrolyte abnormality: Code(s): E87.8 - Other disorders of electrolyte and fluid balance, not elsewhere classified Status: Acute Assessment and Plan: Potassium was low and this was replaced. Potasium normla now. Sodium low at 129 probably related to dehydration. With IV fluids, sodium a little but better. Follow Mag 1.0. Mag replaced. Mag normal now. Follow and replace as needed. (5) Hepatitis: Code(s): K75.9 - Inflammatory liver disease, unspecified Status: Acute Assessment and Plan: On admission, TB 6.4 with AST 301, ALT 95 and AP 424. Lactic acid 6.4 but normal on repeat. PCT 0.7. Imaging as above. Viral hepatitis panel negative. Probably related to alcoholic hepatitis. Discriminant fxn = 8. MELD = 13 (18 if using MELD 3.0) GI recommends steroids but he has mild-mod alc hepatitis which have a relatively favorable outcome. LFTs improved except TBili higher. Repeat PT/PTT. Hold on steroids. Plan DVT Prophylaxis - SCDs Code status - full Subjective Date/time seen: 02/16/24 16:49 Interval history: 38yo male with HTN, anxiety, alcohol abuse adn tobacco abuse here for abdominal pain, nausea and vomiting with hematemesis (blood streaked). Patient feels much better. Still having upper abdominal pain but improved. Minimal shakes Exam Narrative: AF 98.3 125/73 81 20 100% ra Gen - NARD Chest - CTA bilaterally, nml RR CV - RRR S1/S2. Tele showing PVCs Abd - tense with voluntary guarding. +BS. Ext - No pedal edema Psych - Nml mood and affect. no tremors Skin - Warm and dry. no diaphoresis Objective Data Vital Signs Vital Signs: Vital Signs - 24 hr 02/15/24 18:00 02/15/24 20:00 02/15/24 20:00 Temperature Pulse Rate 81 93 Respiratory Rate Blood Pressure Pulse Oximetry Oxygen Delivery Room Air 02/15/24 20:40 02/15/24 21:25 02/15/24 23:17 Temperature 98.2 F Pulse Rate 90 9 L Respiratory Rate 20 Blood Pressure 127/63 Pulse Oximetry 95 Oxygen Delivery Room Air 02/16/24 00:00 02/16/24 00:03 02/16/24 04:00 Temperature 97.8 F Pulse Rate 72 92 Respiratory Rate 20 Blood Pressure 142/97 H Pulse Oximetry 100 Oxygen Delivery Room Air 02/16/24 04:00 02/16/24 04:35 02/16/24 07:54 Temperature 97.7 F 98.0 F Pulse Rate 74 95 90 Respiratory Rate 20 20 Blood Pressure 143/85 H 126/88 Pulse Oximetry 96 96 Oxygen Delivery 02/16/24 08:00 02/16/24 09:00 02/16/24 09:16 Temperature 98.3 F Pulse Rate 82 95 Respiratory Rate 18 22 H Blood Pressure 137/82 118/84 Pulse Oximetry 96 95 Oxygen Delivery Room Air Room Air Room Air 02/16/24 09:26 02/16/24 09:36 02/16/24 11:08 Temperature Pulse Rate 96 84 77 Respiratory Rate 22 H 18 Blood Pressure 114/72 127/75 Pulse Oximetry 96 96 Oxygen Delivery Room Air Room Air 02/16/24 12:00 02/16/24 15:31 Temperature 98.3 F Pulse Rate 81 Respiratory Rate 20 Blood Pressure 125/73 Pulse Oximetry 100 Oxygen Delivery Room Air Intake/Output Intake/Output: Intake & Output 02/13/24 02/14/24 02/15/24 02/16/24 23:59 23:59 23:59 23:59 Intake Total 1170 290 Output Total 1950 Balance 1170 -1660 Meds/Results Medications: Active Medications Generic Name Dose Route Start Last Admin Trade Name Freq PRN Reason Stop Dose Admin Acetaminophen 650 mg 02/15/24 12:28 Acetaminophen 650 Mg Suppository RECTAL Q6H PRN Mild Pain (1-3) or Fever Chlordiazepoxide HCl 25 mg 02/16/24 08:46 02/16/24 11:03 Chlordiazepoxide (*Crx) 25 Mg Capsule PO 25 mg Q6H PRN Administration Withdrawal Dextrose 12.5 gm 02/15/24 12:28 Dextrose 50% 25 Gm/50 Ml Syringe IV PUSH PRN PRN Hypoglycemia Protocol Fentanyl Citrate 50 mcg 02/15/24 12:28 02/16/24 13:46 Fentanyl Citrate Inj (*Crx) 100 Mcg/2 Ml Vial IV PUSH 50 mcg Q2H PRN Administration Pain Rated 7-10 Folic Acid 1 mg 02/16/24 09:00 02/16/24 11:05 Folic Acid 1 Mg/0.2 Ml Inj IV PUSH 1 mg QAM ANIL Administration Glucagon 1 mg 02/15/24 12:28 Glucagon For Inj 1 Mg Vial IM PRN PRN Hypoglycemia Protocol Glucose 15 gm 02/15/24 12:28 Glucose Oral Gel 15 Gm Of Glucse In 37.5 Gm Tube PO PRN PRN Hypoglycemia Protocol Sodium Chloride 1,000 mls @ 150 mls/hr 02/15/24 12:15 02/16/24 03:02 Normal Saline Iv IV CONT 150 mls/hr .Q6H40M ANIL Administration Dextrose 1,000 mls @ 100 mls/hr 02/15/24 12:28 Dextrose 5% 1,000 Ml IVPB PRN PRN Hypoglycemia Protocol Lorazepam 2 mg 02/15/24 09:43 02/15/24 17:01 Lorazepam Inj (*Crx) 2 Mg/Ml Vial IV PUSH 2 mg Q2H PRN Administration CIWA > 15 Metoprolol Succinate 50 mg 02/16/24 09:00 02/16/24 11:08 Metoprolol Succinate Ext Rel 50 Mg Tabcr PO 50 mg QAM ANIL Administration Nicotine 1 patch 02/16/24 16:50 Nicotine (*Pbkc) 21 Mg Patch TRANSDERM DAILY ANIL Ondansetron HCl 4 mg 02/15/24 12:28 02/15/24 17:03 Ondansetron Inj 4 Mg/2 Ml Vial IV PUSH 4 mg Q4H PRN Administration Nausea Simethicone 0.6 ml 02/16/24 09:13 02/16/24 09:13 Simethicone Oral Suspension 20 Mg/0.3 Ml 30 Ml Bottle PO 0.6 ml ONCE PRN Administration Gas Discomfort Thiamine HCl 100 mg 02/16/24 09:00 02/16/24 11:07 Thiamine Hcl 200 Mg/2 Ml Vial IV PUSH 100 mg DAILY ANIL Administration Radiology Results: ITS Impressions Chest X-Ray 02/15/24 10:21 Impression: 1: No acute cardiopulmonary disease. Chest/Abdomen/Pelvis CTA 02/15/24 10:58 IMPRESSION: 1. No pulmonary embolus and. 2. Small region of groundglass opacity in the superior segment of the right lower lobe which could represent atelectasis or pneumonia. 3. Acute interstitial pancreatitis. 4. Greater than typical degree of gallbladder mucosal enhancement but without evident wall thickening or pericholecystic inflammatory stranding. Correlate for Watt sign. 5. Mild dilation of the common bile duct to 7 mm without evident distal obstructing stone but would correlate with liver function tests and could consider MRCP for further evaluation as clinically indicated. 6. Very small amount of likely reactive ascites in the pelvis and right abdomen. Abdomen Ultrasound 02/15/24 13:20 IMPRESSION: 1: Hepatomegaly with fatty infiltration of the liver. 2: Gallbladder sludge with gallbladder wall thickening. Consider cholecystitis in the appropriate clinical setting. MRCP 02/15/24 16:11 IMPRESSION: 1. Diffuse hepatic steatosis. 2. Gallbladder wall thickening, which may be seen with chronic liver disease, interstitial edema, or chronic cholecystitis. 3. Mildly dilated common duct. No choledocholithiasis. 4. Small volume of ascites. Labs Labs: Laboratory Results - last 24 hr 02/15/24 02/15/24 02/15/24 18:24 18:37 20:06 WBC RBC Hgb 9.7 L Hct 26.2 L MCV MCH MCHC RDW Plt Count MPV Immature Gran % (Auto) Neut % (Auto) Lymph % (Auto) [place] % (Auto) Eos % (Auto) Baso % (Auto) Lymph # (Auto) [place] # (Auto) Eos # (Auto) Baso # (Auto) Abs Immat Gran (auto) Absolute Neuts (auto) Absolute Nucleated RBC Nucleated RBC % Platelet Estimate % Immature Plt Fraction Anisocytosis Target Cells Tear Drop Cells Stomatocytes Schistocytes Sodium Potassium Chloride Carbon Dioxide Anion Gap BUN Creatinine Estim Creat Clear Calc Estimated GFR Glucose POC Capillary Glucose 91 97 Lactic Acid 1.0 Calcium Magnesium 1.5 L Total Bilirubin Indirect Bilirubin AST ALT Alkaline Phosphatase Troponin I < 0.012 Total Protein Albumin Lipase Hepatitis A IgM Ab Hep Bs Antigen Hep B Core IgM Ab Hepatitis C Ab Screen 02/16/24 02/16/24 02/16/24 04:54 11:16 12:02 WBC 4.1 L RBC 2.56 L Hgb 8.7 L Hct 24.4 L MCV 95.3 MCH 34.0 MCHC 35.7 RDW 17.2 H Plt Count 31 L MPV TNP Immature Gran % (Auto) 0.5 Neut % (Auto) 61.2 Lymph % (Auto) 31.0 [place] % (Auto) 4.9 Eos % (Auto) 1.7 Baso % (Auto) 0.7 Lymph # (Auto) 1.27 [place] # (Auto) 0.2 Eos # (Auto) 0.1 Baso # (Auto) 0.0 Abs Immat Gran (auto) 0.02 Absolute Neuts (auto) 2.5 Absolute Nucleated RBC 0.000 Nucleated RBC % 0.0 Platelet Estimate Decreased % Immature Plt Fraction 36.9 H Anisocytosis 1+ Target Cells 2+ Tear Drop Cells 1+ Stomatocytes 1+ Schistocytes None seen Sodium 130 L Potassium 3.7 Chloride 103 Carbon Dioxide 27 Anion Gap 0 L BUN 4 L D Creatinine 0.80 Estim Creat Clear Calc 111 Estimated GFR > 60 Glucose 91 POC Capillary Glucose 108 H Lactic Acid Calcium 7.5 L Magnesium 1.8 Total Bilirubin 7.5 H Indirect Bilirubin 1.7 H AST 231 H ALT 80 H Alkaline Phosphatase 305 H Troponin I Total Protein 6.0 L Albumin 2.4 L Lipase 279 Hepatitis A IgM Ab Negative Hep Bs Antigen Negative Hep B Core IgM Ab Negative Hepatitis C Ab Screen Negative
[2024-02-16] MEDS: NICOTINE (*PBKC) 21 MG PATCH 1 PATCH TRANSDERM (17:05)
[2024-02-16 17:59] LABS: Glucose Point of Care 108 mg/dl (65-105)
[2024-02-16] MEDS: ACETAMINOPHEN 325 MG TABLET 650 MG PO (21:06)
[2024-02-17] VITALS (9 sets, daily range): BP systolic 122–127; BP diastolic 71–88; PULSE 66–99; RESP 16–18; TEMP 36.6–36.9; O2SAT 97–99
[2024-02-17 00:08] LABS: Glucose Point of Care 87 mg/dl (65-105)
[2024-02-17] MEDS: chlordiazePOXIDE (*CRX) 25 MG CAPSULE PO (01:44)
[2024-02-17 04:33] LABS: Eosinophils Absolute Auto 0.1 K/mm3 (0-0.3); Hematocrit 24.5 % (42.0-52.0); Hemoglobin 8.7 g/dL (14.0-18.0); Immature Granulocyte Absolute 0.03 K/mm3 (0.00-0.031); Immature Granulocyte Percent A 0.8 % (0-0.5); Lymphocytes Absolute Auto 1.18 K/mm3 (0.9-3.2); Lymphocytes Percent Auto 29.6 % (18.3-44.2); Mean Corpuscular HGB Conc 35.5 g/dl (32-36); Mean Corpuscular Hemoglobin 34.5 pg (26-34); Mean Corpuscular Volume 97.2 fl (80-100); Monocytes Absolute Auto 0.2 K/mm3 (0.1-0.6); Neutrophils Absolute Auto 2.5 K/mm3 (1.3-6.7); Neutrophils Percent Auto 61.6 % (45.5-73.1); Red Blood Count 2.52 M/mm3 (4.6-6.20); Red Cell Distribution Width 17.3 % (11.5-14.5)
[2024-02-17 04:43] LABS: Prothrombin Time 13.4 Seconds (11.1-14.7)
[2024-02-17 04:44] LABS: Alanine Aminotransferase 73 U/L (6-50); Albumin Level 2.5 g/dL (3.5-5.1); Alkaline Phosphatase 310 U/L (38-126); Anion Gap 2 mmol/L (4-12); Aspartate Amino Transferase 175 U/L (17-59); Bilirubin,Total 7.8 mg/dL (0.2-1.3); Blood Urea Nitrogen 3 mg/dL (9-20); Calcium 8.1 mg/dL (8.4-10.2); Carbon Dioxide 26 mmol/L (22-30); Chloride 103 mmol/L (98-107); Estimated CRCL calculation 111 ml/min; Estimated Glomerular Filt Rate > 60; Glucose 91 mg/dL (65-110); Partial Thromboplastin Time 31.9 Seconds (22.3-36.8); Potassium 3.6 mmol/L (3.4-5.0); Sodium 131 mmol/L (137-145)
[2024-02-17 04:55] LABS: Platelet Count Result 35 k/mm3 (150-375)
[2024-02-17 04:56] LABS: Anisocytosis 1+; Platelet Estimate Decreased (Adequate)
[2024-02-17 04:57] LABS: Hypochromasia 1+; Microcytosis 1+ (NORMAL); Schistocytes None Seen; Target Cells 2+
[2024-02-17 08:18] LABS: Iron 130 ug/dL (49-181)
[2024-02-17 08:28] LABS: Percent Iron Saturation 102 % (20-50)
[2024-02-17] MEDS: THIAMINE HCL 100 MG TABLET PO (08:30)
[2024-02-17] MEDS: hydrOXYzine HCL 10 MG TABLET PO (08:30)
[2024-02-17] MEDS: VENLAFAXINE HCL XR 37.5 MG CAP PO (08:30)
[2024-02-17] MEDS: NICOTINE (*PBKC) 21 MG PATCH 1 PATCH TRANSDERM (08:30)
[2024-02-17] MEDS: FOLIC ACID 1 MG TABLET PO (08:30)
[2024-02-17] MEDS: METOPROLOL SUCCINATE EXT REL 50 MG TABCR PO (08:31)
[2024-02-17 09:04] LABS: Ammonia 54 umol/L (9-30)
[2024-02-17 09:27] LABS: Folic Acid 7.7 ng/mL (2.76->20); Vitamin B12 > 1000.0 pg/mL (239-931)
[2024-02-17 09:43] LABS: Ferritin > 2000.00 ng/mL (17.9-464)
[2024-02-17 13:32] LABS: Free T4 Free Thyroxine Reflex 1.28 ng/dL (0.78-2.19)
[2024-02-17 14:53] LABS: Total Triiodothyronine (T3) 0.77 NG/ML (0.97-1.69)
--- NOTE | 2024-02-17 15:20 | PC.NURSE ---
Patient wanting to leave AMA. Dr. Junior notified. He is talking with GI regarding discharging patient. Patient willing to wait at this time for discharge.
--- NOTE | 2024-02-17 15:21 | PC.NURSE ---
Patient removed telemetry and is refusing to put it back in place.
--- NOTE | 2024-02-17 15:30 | P.DS_ITS ---
DS: Admitting Diagnosis Discharge Date 02/17/24 Admitting Diagnosis Abdominal pain DS: Discharge Diagnosis Discharge Diagnosis (1) Pancreatitis: Qualifiers: Acute pancreatitis complication: no infection or necrosis Chronicity: acute Pancreatitis type: alcohol induced Qualified Code(s): K85.20 - Alcohol induced acute pancreatitis without necrosis or infection Code(s): K85.90 - Acute pancreatitis without necrosis or infection, unspecified Status: Acute (2) Hematemesis: Qualifiers: Nausea presence: with nausea Qualified Code(s): K92.0 - Hematemesis Code(s): K92.0 - Hematemesis Status: Acute (3) Alcohol withdrawal: Qualifiers: Complication of substance-induced condition: with unspecified complication Qualified Code(s): F10.939 - Alcohol use, unspecified with withdrawal, unspecified Code(s): F10.939 - Alcohol use, unspecified with withdrawal, unspecified Status: Acute (4) Electrolyte abnormality: Code(s): E87.8 - Other disorders of electrolyte and fluid balance, not elsewhere classified Status: Acute (5) Hepatitis: Code(s): K75.9 - Inflammatory liver disease, unspecified Status: Acute (6) Pancytopenia: Code(s): D61.818 - Other pancytopenia Status: Acute (7) Alcoholism: Code(s): F10.20 - Alcohol dependence, uncomplicated Status: Acute (8) Tobacco abuse: Code(s): Z72.0 - Tobacco use Status: Acute DS: Summary Hospital Course Reason for hospitalization: 38yo male with HTN, anxiety, alcohol abuse and tobacco abuse here for abdominal pain, nausea and vomiting with hematemesis (blood streaked). Please see H&P for details. Hospital Course: (1) Pancreatitis: Patient presented with abdominal pain, nausea and vomiting with streaks of blood. Lipase was normal and remained normal on repeat. CT Abd/Pelvis showing acute interstitial pancreatitis. Greater than typical degree of GB mucosal enhancement but without evident wall thickening or pericholecystic inflammatory stranding and mild dilation of the CBD to 7 mm without evident distal obstructing stone. RUQ US showing hepatomegaly with fatty liver and GB sludge with GB wall thickening. MRCP showing diffuse hepatic steatosis, GB wall thickening and mildly dilated CBD without choledocholithiasis and small volume of ascites. Suspect pancreatitis related to alcoholism. Thickened GB probably from his chronic liver disease and not acute/chronic cholecystitis. GI was consulted. Diet started and his abdominal pain resolved. (2) Hematemesis: Patient with blood tinged hematemesis with no large amounts of bleeding. Hgb did drop from 11 -> 9.7 -> 8.7 but did receive IV fluids as well. No evidence of large amounts of acute blood loss. GI was consulted and EGD performed showing normal esophagus and duodenum. There was diffuse chronic superficial gastritis in the fundus, body and antrum. The gastritis had a mild HTN change. Regular diet ordered. GI recommended stopping all PPIs which was done. Appreciate GI input. Repeat hgb was 8.7 and no further episodes. (3) Alcohol withdrawal: Patient has hx of about 12 drinks daily going on for many years. No hx of withdrawal seizures. Alcohol level was 85. CIWA protocol started . Ativan and Librium available for elevated CIWA protocol. Thiamine and Folate started. He was educated about the benefits of abstaining from alcohol use. He remained calm and CIWA score trended down. (4) Electrolyte abnormality: Potassium was low and this was replaced. Potassium normal now. Sodium low at 129 probably related to dehydration and/or beer potomania. With IV fluids, sodium better. Mag was 1.0. Mag replaced. Mag normal now. (5) Hepatitis: On admission, TB 6.4 with AST 301, ALT 95 and AP 424. Lactic acid 6.4 but normal on repeat. PCT 0.7. Imaging as above. Viral hepatitis panel negative. Probably related to alcoholic hepatitis. Discriminant fxn = 8. MELD = 13 (18 if using MELD 3.0). GI recommended considering steroids but he has mild-mod alcoholic hepatitis which have a relatively favorable outcome so steroids held. LFTs improved except TBili higher. (6) Pancytopenia: Patient with pancytopenia here. Anemia as mentioned above and felt to be acute on chronic. Also with mild leukopenia and low platelet count which patient has been told he has in the past. No old values to compare. MRCP does not show splenomegaly. Possibly related to alcoholism. He is agreeable to follow with hematology. Anti-plt Ab ordered. (7) Alcohol abuse: Patient was educated about the benefits of abstaining from alcohol use. Long discussion about techniques and tips to remain alcohol free. Care coordination provided information to the patient about alcohol rehab and other services. (8) Tobacco abuse: Patient was educated about the benefits of abstaining from tobacco use. Recommended that he stop drinking alcohol 1st before tackling tobacco cessation. Patient feels much better. He is requesting discharge. He is threatening to leave AMA. Discussed with GI who felt patient could be followed up in the clinic with these problems since most of these problems are related to alcoholi sm and/or probably chronic. Patient overall did well and was able to be discharged on 02/17/2024. Status at Discharge Cognitive/behavioral status at discharge: stable Time Spent with Patient Time attestation: Total time spent providing and/or coordinating discharge services: 35 minutes Time spent: Greater than 30 minutes Exam Narrative: AF 98.2 122/82 67 18 97% ra Gen - NARD Chest - CTA bilaterally, nml RR CV - RRR S1/S2 Abd - NT/ND, +BS Ext - No pedal edema Psych - Nml mood and affect. no tremors Skin - Warm and dry. no diaphoresis DS: Data Data Completed and Pending Labs on day of discharge: Labs from last 24 hours 02/17/24 02/17/24 02/17/24 08:23 04:09 04:06 WBC 4.0 L RBC 2.52 L Hgb 8.7 L Hct 24.5 L MCV 97.2 MCH 34.5 H MCHC 35.5 RDW 17.3 H Plt Count 35 L MPV TNP Immature Gran % (Auto) 0.8 H Neut % (Auto) 61.6 Lymph % (Auto) 29.6 [place] % (Auto) 5.0 Eos % (Auto) 2.0 Baso % (Auto) 1.0 Lymph # (Auto) 1.18 [place] # (Auto) 0.2 Eos # (Auto) 0.1 Baso # (Auto) 0.0 Abs Immat Gran (auto) 0.03 Absolute Neuts (auto) 2.5 Absolute Nucleated RBC 0.000 Nucleated RBC % 0.0 Platelet Estimate Decreased % Immature Plt Fraction 33.0 H Hypochromasia 1+ Anisocytosis 1+ Microcytosis 1+ Target Cells 2+ Schistocytes None seen PT 13.4 INR 1.0 APTT 31.9 Sodium 131 L Potassium 3.6 Chloride 103 Carbon Dioxide 26 Anion Gap 2 L BUN 3 L Creatinine 0.80 Estim Creat Clear Calc 111 Estimated GFR > 60 Glucose 91 POC Capillary Glucose Calcium 8.1 L Iron 130 TIBC 128 L % Saturation 102 H Ferritin > 2000.00 H Total Bilirubin 7.8 H AST 175 H ALT 73 H Alkaline Phosphatase 310 H Ammonia 54 H Total Protein 6.0 L Albumin 2.5 L Vitamin B12 Folate TSH (Reflex) 4.560 Free T4 1.28 Total T3 0.77 L COURTNEY Screen Pending Direct Plt-Bound IgG Ab Pending Heparin-induced Plt Ab Pending Hep-Induced Plt Ab Cmmt Pending 02/17/24 02/17/24 02/16/24 04:05 00:05 17:57 WBC RBC Hgb Hct MCV MCH MCHC RDW Plt Count MPV Immature Gran % (Auto) Neut % (Auto) Lymph % (Auto) [place] % (Auto) Eos % (Auto) Baso % (Auto) Lymph # (Auto) [place] # (Auto) Eos # (Auto) Baso # (Auto) Abs Immat Gran (auto) Absolute Neuts (auto) Absolute Nucleated RBC Nucleated RBC % Platelet Estimate % Immature Plt Fraction Hypochromasia Anisocytosis Microcytosis Target Cells Schistocytes PT INR APTT Sodium Potassium Chloride Carbon Dioxide Anion Gap BUN Creatinine Estim Creat Clear Calc Estimated GFR Glucose POC Capillary Glucose 87 108 H Calcium Iron TIBC % Saturation Ferritin Total Bilirubin AST ALT Alkaline Phosphatase Ammonia Total Protein Albumin Vitamin B12 > 1000.0 H Folate 7.7 TSH (Reflex) Free T4 Total T3 COURTNEY Screen Direct Plt-Bound IgG Ab Heparin-induced Plt Ab Hep-Induced Plt Ab Cmmt Discharge Plan Discharge Attending physician on discharge: Kamaljit Junior Consulting providers: Juan Carlos Diallo Discharging Clinician: Kamaljit Junior Anticipated Discharge Date/Time: 02/17/24 15:54 Patient Disposition: Home, Self-Care Activity: as tolerated Diet: low fat Discharge Instructions: Please avoid all products that contain alcohol. Please avoid all products that contain nicotine or tobacco (start this once you have successfully stopped drinking) Please avoid activity that might result in physical trauma due to your low platelet count. Take precautions to avoid falls. Rise slowly from a lying or sitting position. Pause before standing or walking. Contact your doctor or call 911 and come to the Emergency Room if you have any type of trauma, lightheadedness with standing or other worrisome symptoms. Avoid NSAIDs (ibuprofen, naproxen, Aleve). Follow-up with your primary care provider in 1-2 weeks. Please call for appointment. Follow-up with GI doctor in 2-3 weeks. Please call for an appointment. Follow-up with credit card control clerk in 1-2 weeks. Please call for an appointment. -- For further evaluation of your low platelet count. Thank you for using [facility] for your health care needs. Patient Instructions: Antibiotic Form, Alcohol Withdrawal (GEN) Patient Language: Kosovan Stand Alone Forms: General Discharge Information Follow-up/Referrals: Jose Maria Hutchinson MD [Physician] - Juan Carlos Diallo MD [Physician] - UNKNOWN,DOCTOR [Primary Care Provider] - Discharge Medications: New thiamine HCl (vitamin B1) [Vitamin B-1] 100 mg Tablet 100 mg PO QAM Qty: 30 0RF Continued hydroxyzine HCl 10 mg tablet 10 mg PO DAILY metoprolol succinate 50 mg tablet extended release 24 hr 50 mg PO DAILY venlafaxine 37.5 mg capsule,extended release 24hr 37.5 mg PO DAILY Date of admission: 02/15/24 17:59 Primary Care Provider: UNKNOWN,DOCTOR Admitting Provider: Hesham Whipple Attending physician on admission: Hesham Whipple Condition: Stable Hospitalist MIPS Heart Failure (Exclusion) Patient has history of Heart Transplant or Left Ventricular Assistive Device?: No IF YES, STOP HERE Heart Failure (Qualifier) Patient has current or prior documentation of LVEF less than or equal to 40%, or mod/servere depressed LVSF?: No IF NO, STOP HERE
--- NOTE | 2024-02-17 16:14 | PC.NURSE ---
Patient discharged at 1610. Patient ambulated to from door accompanied by staff. Personal belongings returned to patient from safe. Patient states he feels great with no pain. I did reiterate with patient that he has low platelet count and has possibility of increased bleeding if he gets injured. Patient verbalized understanding.
--- NOTE | 2024-02-17 16:33 | P.PNGI_ITS ---
Progress Note: A&P Assessment and Plan (1) Alcoholic hepatitis: Code(s): K70.10 - Alcoholic hepatitis without ascites Status: Acute Assessment and Plan: symptomatic much better, no pain, tolerating diet thiamine, nutrition support he is going home today he understood how important is to stop drinking altogether and attend AA (2) Elevated liver enzymes: Code(s): R74.8 - Abnormal levels of other serum enzymes Status: Acute Assessment and Plan: from alcoholic hepatitis discriminant function today only 12, no need of steroidsd thiamine stop drinking alcohol follow-up office in 3-4 weeks (3) Thrombocytopenia: Code(s): D69.6 - Thrombocytopenia, unspecified Status: Acute (4) Pancreatitis: Qualifiers: Pancreatitis type: other Acute pancreatitis complication: no infection or necrosis Code(s): K85.90 - Acute pancreatitis without necrosis or infection, unspecified Status: Acute (5) Nausea and vomiting: Qualifiers: Vomiting type: hematemesis Qualified Code(s): K92.0 - Hematemesis Code(s): R11.2 - Nausea with vomiting, unspecified Status: Acute Assessment and Plan: resolved and eating now (6) Coffee ground emesis: Code(s): K92.0 - Hematemesis Status: Acute Assessment and Plan: egd without signs of bleeding Subjective Date/time seen: 02/17/24 14:33 Interval history: he is doing well, no nausea, no pain and looking forward to going home today egd yesterday no major findings Review of Systems Review of Systems: All systems reviewed & are unremarkable except as noted in HPI and below Exam Const: General: comfortable and no acute distress HENMT: Face/Nose/Sinus: Normal nares present Eyes: Other: icteric Neck: Neck: supple Resp: Effort & Inspection: normal respiratory effort Cardio: Rate: regular rate GI: GI Palp: Yes Soft to palpation and No Tenderness to palpation present (GI) Auscultation: normal bowel sounds Skin: General skin exam: no rashes or lesions noted Neuro: Speech: normal speech Motor exam (neuro): 5/5 motor strength present throughout Extrem: General: normal to inspection Psych: Mental Status: mental status grossly normal Objective Data Vital Signs Vital Signs: Vital Signs - 24 hr 02/16/24 18:00 02/16/24 20:00 02/16/24 20:00 Temperature 98.4 F Pulse Rate 84 78 72 Respiratory Rate 18 Blood Pressure 123/69 Pulse Oximetry 97 02/16/24 22:00 02/17/24 00:00 02/17/24 00:00 Temperature 98.2 F Pulse Rate 71 68 72 Respiratory Rate 16 Blood Pressure 127/88 Pulse Oximetry 97 02/17/24 02:00 02/17/24 04:00 02/17/24 04:00 Temperature 98.5 F Pulse Rate 69 66 80 Respiratory Rate 16 Blood Pressure 123/71 Pulse Oximetry 98 02/17/24 06:00 02/17/24 08:00 02/17/24 08:00 Temperature 97.9 F Pulse Rate 66 82 99 Respiratory Rate 18 Blood Pressure 125/86 Pulse Oximetry 99 02/17/24 08:31 02/17/24 10:00 02/17/24 12:00 Temperature 98.2 F Pulse Rate 82 80 87 Respiratory Rate 18 Blood Pressure 122/82 Pulse Oximetry 97 02/17/24 12:00 02/17/24 14:00 Temperature Pulse Rate 79 67 Respiratory Rate Blood Pressure Pulse Oximetry Intake/Output Intake/Output: Intake & Output 02/14/24 02/15/24 02/16/24 02/17/24 23:59 23:59 23:59 23:59 Intake Total 1170 830 980 Output Total 3250 3150 Balance 1170 2420 -2170 Meds/Results Radiology Results: ITS Impressions Chest X-Ray 02/15/24 10:21 Impression: 1: No acute cardiopulmonary disease. Chest/Abdomen/Pelvis CTA 02/15/24 10:58 IMPRESSION: 1. No pulmonary embolus and. 2. Small region of groundglass opacity in the superior segment of the right lower lobe which could represent atelectasis or pneumonia. 3. Acute interstitial pancreatitis. 4. Greater than typical degree of gallbladder mucosal enhancement but without evident wall thickening or pericholecystic inflammatory stranding. Correlate for Watt sign. 5. Mild dilation of the common bile duct to 7 mm without evident distal obstructing stone but would correlate with liver function tests and could consider MRCP for further evaluation as clinically indicated. 6. Very small amount of likely reactive ascites in the pelvis and right abdomen. Abdomen Ultrasound 02/15/24 13:20 IMPRESSION: 1: Hepatomegaly with fatty infiltration of the liver. 2: Gallbladder sludge with gallbladder wall thickening. Consider cholecystitis in the appropriate clinical setting. MRCP 02/15/24 16:11 IMPRESSION: 1. Diffuse hepatic steatosis. 2. Gallbladder wall thickening, which may be seen with chronic liver disease, interstitial edema, or chronic cholecystitis. 3. Mildly dilated common duct. No choledocholithiasis. 4. Small volume of ascites. Labs Labs: Laboratory Results - last 24 hr 02/16/24 02/17/24 02/17/24 17:57 00:05 04:05 WBC RBC Hgb Hct MCV MCH MCHC RDW Plt Count MPV Immature Gran % (Auto) Neut % (Auto) Lymph % (Auto) Treasure % (Auto) Eos % (Auto) Baso % (Auto) Lymph # (Auto) Treasure # (Auto) Eos # (Auto) Baso # (Auto) Abs Immat Gran (auto) Absolute Neuts (auto) Absolute Nucleated RBC Nucleated RBC % Platelet Estimate % Immature Plt Fraction Hypochromasia Anisocytosis Microcytosis Target Cells Schistocytes PT INR APTT Sodium Potassium Chloride Carbon Dioxide Anion Gap BUN Creatinine Estim Creat Clear Calc Estimated GFR Glucose POC Capillary Glucose 108 H 87 Calcium Iron TIBC % Saturation Ferritin Total Bilirubin AST ALT Alkaline Phosphatase Ammonia Total Protein Albumin Vitamin B12 > 1000.0 H Folate 7.7 TSH (Reflex) Free T4 Total T3 02/17/24 02/17/24 02/17/24 04:06 04:09 08:23 WBC 4.0 L RBC 2.52 L Hgb 8.7 L Hct 24.5 L MCV 97.2 MCH 34.5 H MCHC 35.5 RDW 17.3 H Plt Count 35 L MPV TNP Immature Gran % (Auto) 0.8 H Neut % (Auto) 61.6 Lymph % (Auto) 29.6 Treasure % (Auto) 5.0 Eos % (Auto) 2.0 Baso % (Auto) 1.0 Lymph # (Auto) 1.18 Treasure # (Auto) 0.2 Eos # (Auto) 0.1 Baso # (Auto) 0.0 Abs Immat Gran (auto) 0.03 Absolute Neuts (auto) 2.5 Absolute Nucleated RBC 0.000 Nucleated RBC % 0.0 Platelet Estimate Decreased % Immature Plt Fraction 33.0 H Hypochromasia 1+ Anisocytosis 1+ Microcytosis 1+ Target Cells 2+ Schistocytes None seen PT 13.4 INR 1.0 APTT 31.9 Sodium 131 L Potassium 3.6 Chloride 103 Carbon Dioxide 26 Anion Gap 2 L BUN 3 L Creatinine 0.80 Estim Creat Clear Calc 111 Estimated GFR > 60 Glucose 91 POC Capillary Glucose Calcium 8.1 L Iron 130 TIBC 128 L % Saturation 102 H Ferritin > 2000.00 H Total Bilirubin 7.8 H AST 175 H ALT 73 H Alkaline Phosphatase 310 H Ammonia 54 H Total Protein 6.0 L Albumin 2.5 L Vitamin B12 Folate TSH (Reflex) 4.560 Free T4 1.28 Total T3 0.77 L
[2024-02-20 14:43] LABS: Heparin Induced Platelet Antib Positive (Negative)
== END 2024-02-17 16:10 | disposition home or self-care (01) | DRG 282 ==
LOC: ANHED 11:48 → ANHIMU 14:20
PROVIDERS: Emergency Medicine; Internal Medicine Gastroenterology; Nurse Practitioner Family; Admitting Provider Hospitalist; Emergency Provider Physician Assistant; Visit Provider Internal Medicine
PROC: 0DJ08ZZ Inspection of Upper Intestinal Tract, Via Natural or Artificial Opening Endoscopic (ICD-10-PCS; CPT 43235; principal; 2024-02-16 16:30)
DX: K85.20 Alcohol induced acute pancreatitis without necrosis or infection (principal); K70.10 Alcoholic hepatitis without ascites; K92.0 Hematemesis; K29.30 Chronic superficial gastritis without bleeding; D61.818 Other pancytopenia; E87.6 Hypokalemia; E87.1 Hypo-osmolality and hyponatremia; E83.42 Hypomagnesemia; F41.9 Anxiety disorder, unspecified; F17.210 Nicotine dependence, cigarettes, uncomplicated; F10.139 Alcohol abuse with withdrawal, unspecified; I10 Essential (primary) hypertension
CPT/HCPCS: 36415; 71046; 71275; 74177; 74183; 76376; 76705; 80053; 80074; 82077; 82140; 82607; 82728; 82746; 82948; 83540; 83550; 83605; 83690; 83735; 84100; 84145; 84439; 84443; 84480; 84484; 85014; 85018; 85025; 85055; 85610; 85730; 86022; 86023; 86038; 86039; 86850; 86900; 86901; 93005; 96365; 96375; 96376; 99285; A9270; A9577; G0378; J2060; J2250; J2405; J2470; J2704; J3010; J3411; J3475; J3480; J7030; J7040; J7120; Q9967